=== PATIENT | male | born 1945 | race Caucasian/White ===

== ENCOUNTER 2016-09-17 05:17 | Inpatient (IN) | payer MEDICARE ==
[~2016-09-17] VITALS: Ht 177.8 cm; Wt 118.4 kg
--- NOTE | ~2016-09-17 | HEMODYNAMI ---
PATIENT:JACKELIN MOORE MEDICAL RECORD: [id number] : 43 LOCATION:[address] ADMISSION DATE: 09/17/16 Generatedon:09/20/20168:43 Patient name: JACKELIN MOORE Patient #: [id number] SSN: : 1945 Date of study: 09/20/2016 Page: Of Hemodynamic Procedure Report Patient Data Patient Demographics Procedure consent was obtained First Name: JACKELIN Gender: Male Last Name: TERESA : 1945 [facility] Initial: R Age: 71 year(s) Patient #: [id number] Race: Unknown Additional ID: [id number] Contact details Address: [address] [place] [address] State: [place] City: [facility] Zip code: [address] Past Medical History Allergies: No known allergies Admission Admission Data Admission Date: 09/17/2016 Admission Time: 6:42 Room #: D.2122 Weight (lbs.): 260 Weight (kg.): 117.93 Lab Results Lab Result Date: 09/19/2016 Lab Result Time: 0:00 Biochemistry Name Units Result Min Max BUN mg/dl 20 --(----)*- 7 18 Creatinine mg/dl 1.4 --(----)*- 0.6 1.3 CBC Name Units Result Min Max Hemoglobin g/dl 12.7 -*(----)-- 13.5 17.5 Procedure Procedure Types Cath Procedure PCI Procedure Coronary Stent Initial Procedure Description Procedure Date Procedure Date: 09/20/2016 Procedure Start Time: 8:11 Procedure End Time: 8:38 Procedure Staff Name Function Carl Robledo MD Performing Physician Philly Nuñez RN Nurse Inder Da Silva RT Monitor Maldonado Yu RT Scrub Kathi Nixon RT Monitor Procedure Data Cath Procedure Fluoroscopy Diagnostic fluoroscopy Total fluoroscopy Time: 10 time: 10 min min Contrast Material Contrast Material Type Amount (ml) Isovue 300 152 Entry Location Entry Primary Successful Side Size Upsize Upsize Entry Closure Succes sful Closure Location (Fr) 1 (Fr) 2 (Fr) Remarks Device Remarks Femoral Right 6 Fr 7 Fr Exoseal artery Short Short Estimated blood loss: 10 ml Procedure Complications No complications Procedure Medications Medication Administration Route Dosage Oxygen NC 2 l/min Lidocaine 2% added to field 20 Heparin Flush Bag added to field 2 bags (1000units/500ml NS) 0.9% NaCl I.V. 100 ml/hr Versed I.V. 1 mg Fentanyl I.V. 50 mcg Versed I.V. 0.5 mg Fentanyl I.V. 25 mcg Heparin Bolus I.V. 4000 units Versed I.V. 0.5 mg Fentanyl I.V. 25 mcg Fentanyl I.V. 50 mcg Hemodynamics Rest HGB: 12.7 (g/dl) Heart Rate: 70 (bpm) Snapshots Pre Cath Intra NCS Post Cath Vital Signs Time Heart Resp SPO2 etCO2 [id number] NIBP (mmHg) Rhythm Pain Sedation Rate (ipm) (%) (mmHg) (mmHg) Status Level (bpm) 7:52:31 97 18 93 0 0 156/81(114) NSR 0 (11) 10(A) , No pain 7:57:02 83 37 98 0 0 162/73(129) NSR 0 (11) 10(A) , No pain 8:01:17 80 20 96 0 0 135/69(100) NSR 0 (11) 10(A) , No pain 8:05:38 80 20 95 0 0 136/68(94) NSR 0 (11) 10(A) , No pain 8:09:54 82 20 94 0 0 118/66(84) NSR 0 (11) 10(A) , No pain 8:14:10 82 18 94 0 0 127/66(100) NSR 0 (11) 9(A) , No pain 8:20:31 82 16 94 0 0 142/74(0) NSR 0 (11) 9(A) , No pain 8:25:30 84 19 92 0 0 134/64(0) NSR 0 (11) 9(A) , No pain 8:27:49 86 19 96 0 0 129/51(0) NSR 0 (11) 9(A) , No pain 8:31:40 83 21 96 0 0 154/68(0) NSR 0 (11) 9(A) , No pain 8:36:44 85 20 96 0 0 176/81(122) NSR 0 (11) 10(A) , No pain Medications Time Medication Route Dose Verified Delivered Reason Notes Effectiveness by by 7:54:13 Oxygen NC 2 Carl Buffie used for l/min Venkat Nuñez RN procedure 8:03:55 Lidocaine 2% added 20ml Carl Carl for local to vial Venkat Robledo MD anesthetic field 8:04:00 Heparin Flush added 2 Carl Calr used for Bag to bags Venkat Robledo MD procedure (1000units/500ml field NS) 8:07:44 0.9% NaCl I.V. 100 Carl Buffie Per physician ml/hr Venkat Nuñez RN 8:08:59 Versed I.V. 1 mg Carl Perezie for sedation Venkat Nuñez RN 8:09:05 Fentanyl I.V. 50 Carl Buffie for sedation mcg Venkat Nuñez RN 8:12:04 Versed I.V. 0.5 Carl Buffie for sedation mg Venkat Nuñez RN 8:12:08 Fentanyl I.V. 25 Carl Buffie for sedation mcg Venkat Nuñez RN 8:12:48 Heparin Bolus I.V. 4000 Carl Buffie for verifie d units Venkat Nuñez RN anticoagulation with dr robledo 8:24:09 Versed I.V. 0.5 Carl Buffie for sedation mg Venkat Nuñez RN 8:24:13 Fentanyl I.V. 25 Carl Buffie for sedation mcg Venkat Nuñez RN 8:28:41 Fentanyl I.V. 50 Carl Buffie for sedation mcg Venkat Nuñez RN Procedure Log Time Note 7:17:46 Patient Weight : 260 lbs 7:19:16 Diagnostic Cath status Elective 7:19:29 Time tracking: Regular hours 7:19:34 Plan of Care:Hemodynamics will remain stable., Cardiac rhythm will remain stable., Comfort level will be maintained., Respiratory function will remain adequate., Patient/ family verbilizes understanding of procedure., Procedure tolerated without complication., Recovers from procedure without complications.. 7:30:20 Maldonado ESPITIA(R) sent for patient. Start room use. 7:42:58 Patient received from PCU to CCL 2 Alert and oriented. Tansferred to table in Supine position. 7:50:59 Warm blankets applied, and daryn hugger turned on for patient comfort. 7:50:59 Correct patient and procedure confirmed by team. 7:51:00 Signed procedure consent form obtained from patient. 7:51:01 ECG and BP/O2 sat monitors applied to patient. 7:51:05 Vital chart was started 7:54:13 Oxygen 2 l/min NC was given by Philly Nuñez RN; used for procedure; 8:01:18 Use device set Femoral PCI 8:01:20 Acist Syringe opened to sterile field. 8:01:20 Acist Hand Control opened to sterile field. 8:01:21 Bag Decanter opened to sterile field. 8:01:22 Cardinal Cath Pack opened to sterile field. 8:01:23 Terumo 6Fr [place] Sheath opened to sterile field. 8:01:24 St Rene 260cm J .035 wire opened to sterile field. 8:01:25 Merit BasixCompak Inflation Kit opened to sterile field. 8:01:26 Acist Manifold opened to sterile field. 8:01:26 Tegaderm 4 x 4 opened to sterile field. 8:02:26 Colbert Whisper J 300cm 0.014 guide wire opened to sterile field. 8:02:32 Baseline sample Acquired. 8:02:36 Rhythm: sinus rhythm 8:03:31 Full Disclosure recording started 8:03:51 H&P Date Dictated: 09/17/2016 Within 30 days and on chart.. 8:03:53 Pre-procedure instructions explained to patient. 8:03:54 Pre-op teaching completed and patient verbalized understanding. 8:03:55 Lidocaine 2% 20ml vial added to field was given by Carl Robledo MD; for local anesthetic; 8:03:57 Family in patients room. 8:04:00 Heparin Flush Bag (1000units/500ml NS) 2 bags added to field was given by Carl Robledo MD; used for procedure; 8:04:00 Patient NPO since Midnight. 8:04:04 Is the patient allergic to Iodine/contrast media? No. 8:04:09 Is patient on blood thinner?Yes 8:04:17 ACC The patient was administered the following blood thiners within the last 24 hours: ACCAspirin, ACCPlavix 8:04:37 Patient diabetic? No. 8:05:12 ----Pre-sedation anethsthesia assessment.---- 8:05:15 Previous problem with sedation/anesthesia? No ? 8:05:21 Snore? Yes 8:05:23 Sleep apnea? Yes 8:05:26 Deviated septum? No 8:05:27 Opens mouth fully? Yes 8:05:29 Sticks out tongue? Yes 8:05:37 Airway obstruction? No ? 8:05:40 Dentures? No ? 8:05:50 Pre procedure: left dorsailis pedis pulse 1+ Palpable, but thready & weak; easily obliterated 8:05:54 Zero performed for pressure channel P1 8:06:10 Patient pain scale 0/10 ?. 8:06:30 IV patent on arrival in left forearm with 0.9% NaCl at [facility]. 8:06:36 Left groin area was prepped with chlora-prep and draped in sterile fashion 8:06:38 Alarms reviewed by R. N. 8:06:38 Sharps counted by scrub and verified by R.N. 8:06:40 Physician arrived 8:06:41 --------ALL STOP TIME OUT------ 8:06:41 Final Timeout: patient, procedure, and site verified with staff and physician. All members of the team are in agreement. 8:06:44 Left groin site verified by team. 8:06:48 Physical assessment completed. ASA score P 3 - A patient with severe systemic disease as per Carl Robledo MD. 8:06:54 Sedation plan: IV Moderate Sedation Versed, Fentanyl 8:07:44 0.9% NaCl 100 ml/hr I.V. was given by Philly Nuñez RN; Per physician; 8:08:16 Use device set Femoral PCI 8:08:59 Versed 1 mg I.V. was given by Philly Nuñez RN; for sedation; 8:09:05 Fentanyl 50 mcg I.V. was given by Philly Nuñez RN; for sedation; 8:09:08 Acist Syringe opened to sterile field. 8:09:08 Acist Hand Control opened to sterile field. 8:09:09 Bag Decanter opened to sterile field. 8:09:10 Cardinal Cath Pack opened to sterile field. 8:09:11 Terumo 6Fr [place] Sheath opened to sterile field. 8:09:12 St Rene 260cm J .035 wire opened to sterile field. 8:09:14 Merit BasixCompak Inflation Kit opened to sterile field. 8:09:15 Acist Manifold opened to sterile field. 8:09:19 Tegaderm 4 x 4 opened to sterile field. 8:10:59 Procedure started. 8:11:05 Local anesthetic to left femerol artery with Lidocaine 2% by Carl Robledo MD.INITIAL ACCESS ONLY 8:11:57 A 6 Fr Short sheath was inserted into the Right Femoral artery 8:12:04 Versed 0.5 mg I.V. was given by Philly Nuñez RN; for sedation; 8:12:08 Fentanyl 25 mcg I.V. was given by Philly Nuñez RN; for sedation; 8:12:12 Cordis 6FR XBLAD 4.0 guide catheter opened to sterile field. 8:12:29 6 Fr XBLAD 4 guide catheter was inserted over the wire 8:12:39 Whisper wire advanced. 8:12:42 Wire advanced across lesion. 8:12:48 Heparin Bolus 4000 units I.V. was given by Philly Nuñez RN; for anticoagulation; verified with dr robledo 8:13:38 Colbert Whisper J 300cm 0.014 guide wire opened to sterile field. 8:16:46 Wire removed. 8:16:47 Guide catheter removed. 8:17:01 unable to cross lesion 8:18:18 Sheath upsized to a 7 Fr Short. 8:19:14 [place] Sci Choice PT Extra Support J 300cm .014 gu opened to sterile field. 8:19:16 Medtronic Launcher 7Fr EBU 3.5 SH guide catheter opened to sterile field. 8:19:30 7 Fr EBU 3.5 guide catheter was inserted over the wire 8:19:37 ex support wire advanced. 8:22:40 wire exchanged for whisper, unable to access cx with ex support wire 8:24:09 Versed 0.5 mg I.V. was given by Philly Nuñez RN; for sedation; 8:24:13 Fentanyl 25 mcg I.V. was given by Philly Nuñez RN; for sedation; 8:25:42 Wire advanced across lesion. 8:25:46 Balloon re-inserted over wire. 8:26:34 Inflation number: 1 A [place] Sci [place] 3.0 X 20 balloon was prepped and advanced across the Prox CX, then inflated to 11 CLARK for 0:10 (min:sec). 8:27:12 Inflation number: 1 The [place] Sci [place] 3.0 X 20 balloon was reinflated across the 1st Ob Gail, to 11 CLARK for 0:10 (min:sec). 8:27:31 Balloon removed over the wire. 8:28:41 Fentanyl 50 mcg I.V. was given by Philly Nuñez RN; for sedation; 8:30:03 Inflation Number: 2 A Medtronic Resolute 2.75 X 14 stent was prepped and advanced across the 1st Ob Gail. The stent was deployed at 13 CLARK for 0:10 (min:sec). 8:30:56 Stent catheter was removed intact over wire. 8:31:25 Terumo 7Fr [place] Sheath opened to sterile field. 8:33:25 Inflation Number: 2 A Medtronic Resolute 2.5 X 14 stent was prepped and advanced across the Prox CX. The stent was deployed at 0 CLARK for 0:00 (min:sec). 8:33:59 2.5 STENT UNABLE to CROSS 8:35:43 Cordis 7Fr Exoseal opened to sterile field. 8:35:50 Wire removed. 8:35:51 Guide catheter removed. 8:36:08 Stent removed. unable to cross lesion. 8:36:27 Sheath removed intact; hemostasis achieved with Exoseal to the Right Femoral artery. 8:36:30 Procedure ended.(Physican Out) 8:36:53 Fluoroscopy time 10.00 minutes. 8:37:09 Contrast amount:Isovue 300 152ml. 8:37:11 Sharps counted by scrub and verified by R.N. 8:37:14 Insertion/operative site no bleeding no hematoma. 8:37:18 Post-op/insertion site Left Femoral artery dressed using a 4 x 4 and Tegaderm. 8:37:24 Post left femerol artery:stable 8:37:33 Post-procedure physical assessment completed. ASA score P 3 - A patient with severe systemic disease as per Carl Robledo MD. 8:37:39 Post procedure rhythm: unchanged. 8:37:43 Estimated blood loss: 10 ml 8:37:45 Post procedure instruction explained to patient.Patient verbalizes understanding. 8:37:51 Procedure and supply charges have been captured, reviewed, submitted and are correct. 8:38:43 Procedure Complication : No complications 8:38:46 Vital chart was stopped 8:38:48 See physician's report for complete and final results. 8:38:51 Report given to [facility]. 8:38:55 Patient transfered to [facility] with Bed. 8:38:58 Procedure ended. 8:38:58 Full Disclosure recording stopped 8:39:08 ACC-PCI Only Patient was given prescriptions, or instructed by Carl Robledo MD to start/continue the following medications upon discharge: Plavix 8:39:10 End room use (Document Last) Intervention Summary Intervention Notes Time ActionType Lesion and Equipment Action# Pressure Duration Attributes Used 8:26:34 Inflate Prox CX [place] 1 11 00:10 balloon Sci [place] 3.0 X 20 balloon 8:27:12 Reinflate 1st Ob Gail [place] 1 11 00:10 balloon Sci [place] 3.0 X 20 balloon 8:30:03 Place stent 1st Ob Gail Medtronic 2 13 00:10 Resolute 2.75 X 14 stent 8:33:25 Place stent Prox CX Medtronic 2 0 00:00 Resolute 2.5 X 14 stent Device Usage Item Name Manufacture Quantity Catalog Number Hospital Part Current Mini mal Lot# / Charge Number Stock Stock Serial# Code Acist Acist 2 73223 [id number] [id number] 20 Syringe Medical Systems Inc Acist Hand Acist 2 97946 139056 227362 963843 5 Control Medical Systems Inc Bag Microtek 2 2002S [id number] 45076 052542 5 Decanter Medical Inc. Cardinal Cardinal 2 [id number] 391437 02925 212188 5 Cath Pack Health Terumo 6Fr Terumo 2 [id number] 130443 242229 573914 [address] St Rene 2 [id number] 125041 563649 251633 30 260cm J .035 wire Merit Merit 2 [id number] 057340 136500 861735 15 BasixYext Medical Inflation Kit Acist Acist 2 26011 100267 367141 563485 5 Pipedrive Medical Systems Inc Tegaderm 4 3M 2 1626W 608229 815562 177185 5 x 4 Colbert Colbert 2 [id number] 470956 597161 631473 5 Whisper J Vascular 300cm 0.014 guide wire Cordis 6FR Cardinal 1 [id number] 459547 380032 853188 3 XBLAD 4.0 Health guide catheter [place] Sci [place] 1 [id number] 592331 671892 836891 5 Choice PT Scientific Extra Support J 300cm .014 gu Medtronic Medtronic 1 [id number] 743092 078465 959396 0 Launcher 7Fr EBU 3.5 SH guide catheter [place] Sci [place] 1 [id number] 197651 048159 889464 1 [id number] [place] Scientific 3.0 X 20 balloon Medtronic Medtronic 1 [id number] 930735 301646 7 [id number] Resolute 2.75 X 14 stent Terumo 7Fr Terumo 1 [id number] 008722 692726 318620 5 [place] Sheath Medtronic Medtronic 1 [id number] 575755 338954 3 [id number] Resolute 2.5 X 14 stent Cordis 7Fr Cardinal 1 [id number] 960098 758356 355403 5 [facility] Health Signature Audit [place] Stage Time Signature Unsigned Intra-Procedure 09/20/2016 Kathi Nixon 8:43:48 AM RT(R) Signatures Monitor : Inder Da Silva RT Signature : Date : Time : Monitor : Kathi Nixon Signature : RT Date : Time : [facility] [address] [facility] [place] [address]
--- NOTE | ~2016-09-17 | HEMODYNAMI ---
PATIENT:JACKELIN MOORE MEDICAL RECORD: [id number] : 43 [address] [id number] ADMISSION DATE: 09/17/16 Generatedon:09/19/201617:29 Patient name: JACKELIN MOORE Patient #: [id number] SSN: : 1945 Date of study: 09/19/2016 Page: Of Hemodynamic Procedure Report Patient Data Patient Demographics Procedure consent was obtained First Name: JACKELIN Gender: Male Last Name: TERESA : 1945 [facility] Initial: R Age: 71 year(s) Patient #: [id number] Race: Unknown Additional ID: [id number] Contact details Address: [address] [place] [address] State: [place] City: [facility] Zip code: [address] Past Medical History Allergies: No known allergies Admission Admission Data Admission Date: 09/17/2016 Admission Time: 6:42 Admit Source: Other Room #: D.2122 Weight (lbs.): 260 Weight (kg.): 117.93 Lab Results Lab Result Date: 09/19/2016 Lab Result Time: 0:00 Biochemistry Name Units Result Min Max BUN mg/dl 20 --(----)*- 7 18 Creatinine mg/dl 1.4 --(----)*- 0.6 1.3 CBC Name Units Result Min Max Hemoglobin g/dl 12.7 -*(----)-- 13.5 17.5 Procedure Procedure Types Cath Procedure Diagnostic Procedure C [facility] w/Coronaries PCI Procedure Coronary Stent Initial Procedure Description Procedure Date Procedure Date: 09/19/2016 Procedure Start Time: 16:48 Procedure End Time: 17:18 Procedure Staff Name Function Carl Robledo MD Performing Physician Patricia Colon RT Scrub Sofya Cedeno RN Nurse Rajat Marin RN [place] Kathi Nixon RT Monitor Procedure Data Cath Procedure Fluoroscopy Diagnostic fluoroscopy Total fluoroscopy Time: 6.7 time: 6.7 min min Contrast Material Contrast Material Type Amount (ml) Isovue 300 139 Entry Location Entry Primary Successful Side Size Upsize Upsize Entry Closure Mcclure ccessful Closure Location (Fr) 1 (Fr) 2 (Fr) Remarks Device Remarks Radial Right 6 Fr Mechanical TR L artery Short Compression Femoral Right 7 Fr Exoseal artery Short Estimated blood loss: 10 ml Diagnostic catheters Device Type Used For End Catheter Placement Terumo 5Fr Petros 110cm Procedure catheter Procedure Complications No complications Procedure Medications Medication Administration Route Dosage Oxygen NC 2 l/min Heparin Flush Bag added to field 2 bags (1000units/500ml NS) Lidocaine 2% added to field 20 Radial Cocktail added to field 1 syringe (Verapomil 2mg/Nitro 400mcg/Heparin 1500units) Versed I.V. 1 mg Fentanyl I.V. 50 mcg Radial Cocktail I.A. 1 syringe (Verapomil 2mg/Nitro 400mcg/Heparin 1500units) Versed I.V. 1 mg Fentanyl I.V. 50 mcg Fentanyl I.V. 50 mcg Heparin Bolus I.V. 4000 units Integrilin (Bolus I.V. 10.7 ml 2mg/ml) Fentanyl I.V. 50 mcg Plavix P.O. 600 mg Fentanyl I.V. 50 mcg Fentanyl I.V. 50 mcg Hemodynamics Rest Pre Cath Intra NCS Post Cath Vital Signs Time Heart Resp SPO2 NIBP (mmHg) Rhythm Pain Status Sedation Rate (ipm) (%) Level (bpm) 16:41:38 82 22 99 189/92(139) NSR 0 (11) , No 10(A) pain 16:46:10 84 24 99 183/88(143) NSR 0 (11) , No 10(A) pain 16:50:28 82 23 99 164/86(128) NSR 0 (11) , No 10(A) pain 16:54:50 80 19 98 147/73(109) NSR 0 (11) , No 10(A) pain 16:59:10 81 22 98 155/76(110) NSR 0 (11) , No 10(A) pain 17:03:34 83 25 98 153/80(124) NSR 4 (11) , 10(A) Distressing 17:07:59 83 20 98 165/81(134) NSR 4 (11) , 10(A) Distressing 17:12:27 83 24 98 172/81(129) NSR 8 (11) , 10(A) Utterly horrible 17:16:57 82 19 99 176/84(135) NSR 8 (11) , 10(A) Utterly horrible 17:20:55 79 22 100 181/85(132) NSR 4 (11) , 10(A) Distressing Medications Time Medication Route Dose Verified Delivered Reason Note s Effectiveness by by 16:42:06 Oxygen NC 2 l/min Carl Sofya Per physician Venkat Cedeno RN 16:42:12 Heparin Flush added 2 bags Carl Carl used for Bag to Venkat Robledo MD procedure (1000units/500ml field NS) 16:42:18 Lidocaine 2% added 20ml Carl Carl used for to vial Venkat Robledo MD procedure field 16:42:26 Radial Cocktail added 1 Carl Carl used for (Verapomil to syringe Venkat Robledo MD procedure 2mg/Nitro field 400mcg/Heparin 1500units) 16:45:03 Versed I.V. 1 mg Carl Sofya for sedation Venkat Cedeno RN 16:45:08 Fentanyl I.V. 50 mcg Carl Sofya for sedation Venkat Cedeno RN 16:47:00 Versed I.V. 1 mg Carl Carl for sedation Venkat Robledo MD 16:47:06 Fentanyl I.V. 50 mcg Carl Carl for sedation Venkat Robledo MD 16:48:57 Radial Cocktail I.A. 1 Carl Carl for (Verapomil syringe Venkat Robledo MD vasodilation 2mg/Nitro 400mcg/Heparin 1500units) 16:50:18 Fentanyl I.V. 50 mcg Carl Carl for sedation Venkat Robledo MD 16:57:04 Heparin Bolus I.V. 4000 Carl Sofya for dose units Venkat Cedeno RN anticoagulation verified wt dr robledo 17:00:08 Fentanyl I.V. 50 mcg Carl Sofya for sedation Venkat Cedeno RN 17:00:26 Integrilin I.V. 10.7 ml Carl Sofya for (Bolus 2mg/ml) Venkat Cedeno RN antiplatelet therapy 17:06:55 Fentanyl I.V. 50 mcg Carl Sofya for sedation Venkat Cedeno RN 17:11:16 Plavix P.O. 600 mg Carl Sofya for Venkat Cedeno RN antiplatelet therapy 17:16:10 Fentanyl I.V. 50 mcg Carl Cowart Per physician give n Venkat Cedeno RN for pt jaw pain. dr robledo informed of pt jaw pain Procedure Log Time Note 16:24:50 Admit Source: Other 16:25:20 Diagnostic Cath status Elective 16:25:23 Rajat Marin RN sent for patient. Start room use. 16:25:25 Time tracking: Regular hours 16:25:31 Plan of Care:Hemodynamics will remain stable., Cardiac rhythm will remain stable., Comfort level will be maintained., Respiratory function will remain adequate., Patient/ family verbilizes understanding of procedure., Procedure tolerated without complication., Recovers from procedure without complications.. 16:25:45 Patient received from Med II to CCL 1 Alert and oriented. Tansferred to table in Supine position. 16:25:47 Warm blankets applied, and daryn hugger turned on for patient comfort. 16:25:48 Correct patient and procedure confirmed by team. 16:25:50 Signed procedure consent form obtained from patient. 16:25:58 H&P Date Dictated: 09/19/2016 Within 30 days and on chart.. 16:26:03 Family in waiting room. 16:26:05 Patient NPO since Midnight. 16:26:15 Patient allergic to No known allergies 16:26:27 Is the patient allergic to Iodine/contrast media? No. 16:26:35 Is patient on blood thinner?Yes 16:26:46 ACC The patient was administered the following blood thiners within the last 24 hours: ACCPlavix, ACCLovenox 16:26:53 Patient diabetic? No. 16:26:57 Snore? Yes 16:26:58 Sleep apnea? Yes 16:27:00 Deviated septum? No 16:27:01 Opens mouth fully? Yes 16:27:02 Sticks out tongue? Yes 16:27:11 Airway obstruction? Yes COPD, Asthma 16:27:15 Dentures? Yes ? 16:27:21 Patient pain scale 0/10 ?. 16:27:28 IV patent on arrival in right hand with 0.9% NaCl at O. 16:28:13 Lab Result : Creatinine 1.4 mg/dl 16:: Lab Result : BUN 20 mg/dl :: Lab Result : Hemoglobin 12.7 g/dl 16:28:18 Lab results completed and on chart. 16:40:20 Vital chart was started 16:42:06 Oxygen 2 l/min NC was given by Sofya Cedeno RN; Per physician; 16:42:12 Heparin Flush Bag (1000units/500ml NS) 2 bags added to field was given by Carl Robledo MD; used for procedure; 16:42:18 Lidocaine 2% 20ml vial added to field was given by Carl Robledo MD; used for procedure; 16:42:26 Radial Cocktail (Verapomil 2mg/Nitro 400mcg/Heparin 1500units) 1 syringe added to field was given by Carl Robledo MD; used for procedure; 16:42:52 Right Radial & Right Groin area was prepped with chlora-prep and draped in sterile fashion 16:42:53 Alarms reviewed by R. N. 16:42:54 Sharps counted by scrub and verified by R.N. 16:42:55 Physician paged 16:42:55 Physician arrived 16:42:56 --------ALL STOP TIME OUT------ 16:42:57 Final Timeout: patient, procedure, and site verified with staff and physician. All members of the team are in agreement. 16:43:00 Right Radial & Right Groin site verified by team. 16:43:05 Physical assessment completed. ASA score P 2 - A patient with mild systemic disease as per Carl Robledo MD. 16:43:09 Sedation plan: IV Moderate Sedation Versed, Fentanyl 16:43:52 Use device set Radial Dx 16:43:53 Acist Syringe opened to sterile field. 16:43:53 Cardinal Cath Pack opened to sterile field. 16:43:54 Bag Decanter opened to sterile field. 16:43:54 Terumo 6Fr Slender Glidesheath opened to sterile field. 16:43:55 St Rene 260cm J .035 wire opened to sterile field. 16:43:55 Acist Hand Control opened to sterile field. 16:43:56 Acist Manifold opened to sterile field. 16:43:56 IV Extension Set opened to sterile field. 16:43:57 Tegaderm 4 x 4 opened to sterile field. 16:45:03 Versed 1 mg I.V. was given by Sofya Cedeno RN; for sedation; 16:45:08 Fentanyl 50 mcg I.V. was given by Sofya Cedeno RN; for sedation; 16:47:00 Versed 1 mg I.V. was given by Carl Robledo MD; for sedation; 16:47:06 Fentanyl 50 mcg I.V. was given by Carl Robledo MD; for sedation; 16:47:55 Zero performed for pressure channel P1 16:47:57 Patient Weight : 117.93 lbs 16:48:42 Procedure started. 16:48:42 Full Disclosure recording started 16:48:48 Local anesthetic to right radial artery with Lidocaine 2% by Carl Robledo MD.INITIAL ACCESS ONLY 16:48:57 Radial Cocktail (Verapomil 2mg/Nitro 400mcg/Heparin 1500units) 1 syringe I.A. was given by Carl Robledo MD; for vasodilation; 16:48:57 A 6 Fr Short sheath was inserted into the Right Radial artery 16:50:18 Fentanyl 50 mcg I.V. was given by Carl Robledo MD; for sedation; 16:50:25 A Terumo 5Fr Petros 110cm catheter was advanced over the wire and used for Procedure. 16:50:34 LV hemodynamics recorded. 16:50:44 LV gram done using DEWEY 16:51:17 EF : 50 % 16:51:26 LCA angiography performed. 16:53:30 RCA angiography performed. 16:57:04 Heparin Bolus 4000 units I.V. was given by Sofya Cedeno RN; for anticoagulation; dose verified wt dr robledo 16:59:31 Terumo 7Fr [place] Sheath opened to sterile field. 16:59:38 Colbert Whisper J 300cm 0.014 guide wire opened to sterile field. 17:00:08 Fentanyl 50 mcg I.V. was given by Sofya Cedeno RN; for sedation; 17:00:26 Integrilin (Bolus 2mg/ml) 10.7 ml I.V. was given by Sofya Cedeno RN; for antiplatelet therapy; 17:00:48 Merit BasixCompak Inflation Kit opened to sterile field. 17:00:49 Medtronic Launcher 7Fr AR 2.0 SH guide catheter opened to sterile field. 17:01:15 Local anesthetic to right femoral artery with Lidocaine 2% by Carl Robledo MD.ADDITIONAL ACCESS 17:01:29 A 7 Fr Short sheath was inserted into the Right Femoral artery 17:01:50 7 Fr AR@ SH guide catheter was inserted over the wire 17:02:26 Whisper wire advanced. 17:03:48 Inflation Number: 1 A Medtronic Resolute 3.0 X 9 stent was prepped and advanced across the Dist RCA. The stent was deployed at 21 CLARK for 0:10 (min:sec). 17:06:55 Fentanyl 50 mcg I.V. was given by Sofya Cedeno RN; for sedation; 17:07:16 Inflation number: 2 A Euphora 3.0 x 15 Balloon was prepped and advanced across the Dist RCA, then inflated to 13 CLARK for 0:10 (min:sec). 17:07:26 Balloon removed over the wire. 17:09:22 Wire removed. 17:10:28 Terumo TR Band Large opened to sterile field. 17:10:31 Cordis 7Fr Exoseal opened to sterile field. 17:11:16 Plavix 600 mg P.O. was given by Sofya Cedeno RN; for antiplatelet therapy; 17:11:23 Inflation Number: 1 A Medtronic Resolute 2.5 X 8 stent was prepped and advanced across the Mid RCA. The stent was deployed at 13 CLARK for 0:10 (min:sec). 17:15:24 Sheath removed intact; hemostasis achieved with Mechanical Compression to the Right Radial artery. 17:15:34 Sheath removed intact; hemostasis achieved with Exoseal to the Right Femoral artery. 17:15:38 Procedure ended.(Physican Out) 17:16:01 Fluoroscopy time 06.70 minutes. 17:16:10 Fentanyl 50 mcg I.V. was given by Sofya Cedeno RN; Per physician; given for pt jaw pain. dr robledo informed of pt jaw pain 17:16:23 Contrast amount:Isovue 300 139ml. 17:16:29 TR band inflated with 10cc of air. 17:16:32 Insertion/operative site no bleeding no hematoma. 17:16:35 Post-op/insertion site Right Femoral artery dressed using a 4 x 4 and Tegaderm. 17:16:39 Post right femoral artery:stable 17:16:42 Post Procedure Pulses reassessed and unchanged 17:16:47 Post-procedure physical assessment completed. ASA score P 3 - A patient with severe systemic disease as per Carl Robledo MD. 17:16:50 Post procedure rhythm: unchanged. 17:16:54 Estimated blood loss: 10 ml 17:16:56 Post procedure instruction explained to patient.Patient verbalizes understanding. 17:17:11 Procedure type changed to Cath procedure, Diagnostic procedure, LHC, LHC w/Coronaries, PCI procedure, Coronary Stent Initial 17:17:13 Procedure and supply charges have been captured, reviewed, submitted and are correct. 17:18:19 Procedure Complication : No complications 17:18:22 Vital chart was stopped 17:18:23 See physician's report for complete and final results. 17:18:30 Report given to [facility] II. 17:18:36 Patient transfered to [facility] with Bed. 17:18:38 Procedure ended. 17:18:38 Full Disclosure recording stopped 17:18:47 End room use (Document Last) 17:28:24 St Rene Femstop Arch Gold opened to sterile field. 17:28:39 Femstop placed over the right femoral artery at 1530 mmHg. Hemostasis achieved. Intervention Summary Intervention Notes Time ActionType Lesion and Equipment Action# Pressure Duration Attributes Used 17:03:48 Place stent Dist RCA Medtronic 1 21 00:10 Resolute 3.0 X 9 stent 17:07:16 Inflate Dist RCA Euphora 2 13 00:10 balloon 3.0 x 15 Balloon 17:11:23 Place stent Mid RCA Medtronic 1 13 00:10 Resolute 2.5 X 8 stent Device Usage Item Name Manufacture Quantity Catalog Hospital Part Current Minimal Lot# / Number Charge Number Stock Stock Serial# Code Acist Acist 1 15577 277228 000869 102337 20 Syringe Medical Systems Inc Cardinal Cardinal 1 [id number] 011822 54951 399429 5 Cath Pack Health Bag Microtek 1 2001S 973974 68106 830597 5 Flotype Inc. Terumo 6Fr Terumo 1 [id number] 135138 482030 167891 [address] Rene St Rene 1 522462 191255 659290 552947 30 260cm J .035 wire Acist Hand Acist 1 91150 843791 976051 476013 5 Control Medical Systems Inc Acist Acist 1 21489 602634 707179 585368 5 Manifold Medical Systems Inc IV Hospira 1 33743-89 298155 90675 146971 5 Extension Set Tegaderm 4 3M 1 1626W 833338 305282 450234 5 x 4 Terumo 5Fr Terumo 2 405023 416533 305514 915974 5 Petros 110cm catheter Terumo 7Fr Terumo 1 [id number] 040619 842769 056849 5 [place] Sheath Colbert Colbert 1 [id number] 821731 073946 964327 5 Whisper J Vascular 300cm 0.014 guide wire [facility] Merit 1 [id number] 089068 750430 247610 15 BasixComwaGeoPoll Medical Inflation Kit Medtronic Medtronic 1 [id number] 760489 531829 509636 0 Launcher 7Fr AR 2.0 SH guide catheter Medtronic Medtronic 1 [id number] 612073 777741 7 [id number] Resolute 3.0 X 9 stent Euphora 3.0 Medtronic 1 [id number] 513264 824898 796797 5 [id number] x 15 Balloon Terumo TR Terumo 1 [id number] 021332 052010 40 Band Large Cordis 7Fr Cardinal 1 EX700 527281 492135 109299 5 [facility] Medtronic Medtronic 1 [id number] 691485 169797 0 [id number] Resolute 2.[address] Rene 1 [id number] 391910 174525 030242 5 Femstop Arch Gold Signature Audit [place] Stage Time Signature Unsigned Intra-Procedure 09/19/2016 Kathi Nixon 5:29:46 PM RT(R) Signatures Monitor : Kathi Nixon Signature : RT Date : Time : [facility] [address] [facility] [address]
[2016-09-17 05:46] LABS: BASOPHILS 0.9 % (0.0-2.0); EOSINOPHILS 2.7 % (0-7); HEMATOCRIT 45.9 % (42.0-54.0); HEMOGLOBIN 15.2 g/dL (13.5-17.5); IMMATURE GRANULOCYTES 0.1 % (0-5); LYMPHOCYTES 36.7 % (15-50); MCH 33.5 pg (26.0-34.0); MCHC 33.1 g/dL (31.0-37.0); MCV 101.1 fL (80.0-100.0); MEAN PLATELET VOLUME 10.2 fL (7.4-10.4); MONOCYTES 11.2 % (2-11); NEUTROPHILS 48.4 % (40-80); PLATELET COUNT 212 10x3/uL (130-400); RBC 4.54 10x6/uL (4.20-6.10); RDW 13.4 % (11.5-14.5); WBC 6.7 10x3/uL (4.8-10.8)
[2016-09-17 06:13] LABS: ALBUMIN 4.2 g/dL (3.4-5.0); ALKALINE PHOSPHATASE 113 U/L (46-116); ALT (SGPT) 29 U/L (10-68); AMYLASE - SERUM 64 U/L (25-115); BILIRUBIN - TOTAL 0.46 mg/dL (0.2-1.3); CALCIUM 10.1 mg/dL (8.5-10.1); CARBON DIOXIDE 22.6 mmol/L (21.0-32.0); CHLORIDE - SERUM 105 mmol/L (98-107); CREATINE KINASE 121 UL (21-232); GLUCOSE 116 mg/dL (74-106); LIPASE 268 U/L (73-393); POTASSIUM - SERUM 3.7 mmol/L (3.5-5.1); PRO BNP 85 pg/mL (0-125); PROTEIN - SERUM 7.8 g/dL (6.4-8.2); SODIUM 142 mmol/L (136-145)
[2016-09-17 06:27] LABS: CALC OSMOLALITY 284 mosm/kg (275-300); CREATININE - SERUM 1.4 mg/dL (0.6-1.3); UREA NITROGEN 15 mg/dL (7-18); eGFR NON AFRICAN AMERICAN 53 mL/min (90-120)
[2016-09-17 06:28] LABS: TROPONIN-I < 0.017 ng/mL (0.000-0.060)
[2016-09-17 08:02] VITALS: BP 159/73
[2016-09-17] MEDS ORDERED: BAYER CHEWABLE81 MG PO (08:55)
[2016-09-17] MEDS ORDERED: ZESTRIL40 MG PO (08:55)
[2016-09-17] MEDS ORDERED: SINGULAIR10 MG PO (08:56)
[2016-09-17] MEDS ORDERED: BENZONATATE200 MG PO (08:56)
[2016-09-17] MEDS ORDERED: MUCINEX600 MG PO (08:56)
[2016-09-17] MEDS ORDERED: NORVASC2.5 MG PO (08:57)
[2016-09-17] MEDS ORDERED: TEMAZEPAM30 MG PO (08:57)
[2016-09-17] MEDS ORDERED: BREO ELLIPTA 11 EACH INH (08:57)
[2016-09-17] MEDS ORDERED: COMBIVENT RESPIM4 GM INH (08:58)
[2016-09-17] MEDS ORDERED: HYDROCODONE-APA1 TAB PO (08:59)
[2016-09-17] MEDS ORDERED: ATIVAN1 MG PO (08:59)
[2016-09-17] MEDS ORDERED: LIPITOR20 MG PO (08:59)
[2016-09-17 09:00] VITALS: BMI 35.9
--- NOTE | 2016-09-17 09:11 | NUR ---
PT APPARENTLY ARRIVED TO FLOOR AROUND 7 AM. I WAS NOT MADE AWARE. PT WAS JUST ADMITTED. PT ALERT AND ORIENTED CO CHEST PAIN AND SOB. DR ACOSTA HERE AND SEEING PT NOW. WILL CONTINUE TO MONITOR.
--- NOTE | 2016-09-17 10:08 | NUR ---
EKG DONE PLACED ON CHART
[2016-09-17 11:18] VITALS: BP 179/83
--- NOTE | 2016-09-17 14:29 | NUR ---
PT SITTING UP IN BED RESTING. DENIES NEEDS. WILL CONTINUE TO MONITOR.
[2016-09-17 15:50] VITALS: BP 150/62
--- NOTE | 2016-09-17 16:10 | NUR ---
EKG DONE AND PLACED ON CHART
--- NOTE | 2016-09-17 17:07 | NUR ---
PT SITTING UP IN BED EATING DINNER AT BEDSIDE. DENIES NEEDS WILL CONTINUE TO MONITOR.
--- NOTE | 2016-09-17 19:47 | NUR ---
INITIAL ROUNDS COMPLETED AT 1905 H RS. PT DENIED ANY DISCOMFORT. PT REFUSING AM WT AND 2400 VS. ASSESSMENT COMPLETED AT 1910 HRS. IV TO R HAND SL. O2 2.5LNC. LUNGS DIMINISHED IN BASES BILAT. GUERRERO. [place]. ALERT AND ORIENTED TO PERSON. PLACE AND TIME. PM MEDS GIVEN. MORPHINE 4MG SIVP GIVEN FOR C/O CP 01/04. HOME CPAP IN USE AT THIS TIME. WILL CONTINUE TO MONITOR. CALL LIGHT WITHIN REACH.
[2016-09-17 20:28] VITALS: BP 116/62
--- NOTE | 2016-09-17 22:01 | NUR ---
PT RESTING WITH EYES CLOSED. RESP EVEN AND REGULAR. SR UP X2,CALL LIGHT WITHIN REACH.
--- NOTE | 2016-09-17 22:56 | NUR ---
ATIVAN 1MG PO GIVEN PER PT REQUEST. WILL CONTINUE TO MONITOR.
--- NOTE | 2016-09-18 00:39 | NUR ---
PT RESTING WITH EYES CLOSED. RESP EVEN AND REGULAR. SR UP X2, CALL LIGHT WITHIN REACH.
--- NOTE | 2016-09-18 02:32 | NUR ---
PT RESTING WITH EYES CLOSED. RESP EVEN AND REGULAR. SR UP X2, CALL LIGHT WITHIN REACH.
--- NOTE | 2016-09-18 04:26 | NUR ---
SR HR 60. PT RESTING WITH EYES CLOSED. RESP EVEN AND REGULAR. HOME CPAP IN USE. SR UP X2, CALL LIGHT WITHIN REACH.
[2016-09-18 05:07] LABS: BASOPHILS 0.3 % (0.0-2.0); EOSINOPHILS 1.4 % (0-7); HEMATOCRIT 41.4 % (42.0-54.0); HEMOGLOBIN 13.4 g/dL (13.5-17.5); IMMATURE GRANULOCYTES 0.2 % (0-5); LYMPHOCYTES 33.3 % (15-50); MCH 32.9 pg (26.0-34.0); MCHC 32.4 g/dL (31.0-37.0); MCV 101.7 fL (80.0-100.0); MEAN PLATELET VOLUME 10.2 fL (7.4-10.4); MONOCYTES 12.6 % (2-11); NEUTROPHILS 52.2 % (40-80); PLATELET COUNT 173 10x3/uL (130-400); RBC 4.07 10x6/uL (4.20-6.10); RDW 13.5 % (11.5-14.5); WBC 6.3 10x3/uL (4.8-10.8)
[2016-09-18 05:39] LABS: CALCIUM 8.4 mg/dL (8.5-10.1); CARBON DIOXIDE 24.6 mmol/L (21.0-32.0); CHLORIDE - SERUM 107 mmol/L (98-107); CREATINE KINASE 99 UL (21-232); CREATININE - SERUM 1.4 mg/dL (0.6-1.3); GLUCOSE 105 mg/dL (74-106); POTASSIUM - SERUM 3.9 mmol/L (3.5-5.1); SODIUM 139 mmol/L (136-145); eGFR NON AFRICAN AMERICAN 53 mL/min (90-120)
[2016-09-18 05:41] LABS: CALC OSMOLALITY 280 mosm/kg (275-300); TROPONIN-I < 0.017 ng/mL (0.000-0.060); UREA NITROGEN 20 mg/dL (7-18)
[2016-09-18 06:22] VITALS: BP 154/57
--- NOTE | 2016-09-18 06:32 | NUR ---
VSS THIS AM. PT STATED HE SLEPT WELL FOR APPROX 6HRS DURING SHIFT. NAD. NEEDS MET; WILL CONTINUE TO MONITOR.
[2016-09-18 07:55] VITALS: BP 139/65
--- NOTE | 2016-09-18 08:57 | NUR ---
INTRODUCED MYSELF TO PT PRIMARY RN FOR TODAYS SHIFT. PT IS ALERT AND ORIENTED RESTING QUIETLY IN BED. RR NONLABORED WITH NC@2L IN PLACE. TELEMETRY RUNNING SR. PT HAS A R.HAND PIV WITH DRSG CDI, PATENT FLUSHES EASILY AND SWAB CAPS IN USE. PT REQUESTED AND WAS PROVIDED WITH PRN MORPHINE FOR L.JAW ACHING PAINS. PT REQUESTING TO ASK PRIMARY DOCTOR ABOUT MILK OF MAGNESIA, WILL ASK WHEN HE ROUNDS. PT DENIES ANY FURTHER NEEDS AT THIS TIME. CL IN REACH, BED IN LOWEST, SIDE RAILS X2. WILL CTM.
[2016-09-18 12:00] VITALS: BP 126/46
--- NOTE | 2016-09-18 13:51 | HP ---
PATIENT: JACKELIN MOORE MEDICAL RECORD: [id number] ACCOUNT: [id number] LOCATION:[address] : 43 ADMISSION DATE: 09/17/16 HISTORY AND PHYSICAL EXAMINATION DATE OF ADMISSION: 09/17/2016 CHIEF COMPLAINT: Shortness of breath, chest pain. HISTORY OF PRESENT ILLNESS: The patient is a 71-year-old gentleman with a longstanding history of an arteriosclerotic heart disease, had stents placed times 7. 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 PAST MEDICAL HISTORY AND PAST SURGICAL HISTORY: As stated above, the patient had a history of having hyperlipidemia, hypertension, and insomnia. He has had a history of having stents placed times 7. The patient also had a history of having asthma as well as COPD. He has had a right hip replaced in 2013, left hip replaced in 2013 as well, cholecystectomy. SOCIAL HISTORY: The patient is a former smoker, stopped approximately 5 years ago. He is an RN. He is . FAMILY HISTORY: Unknown. MEDICATIONS: Albuterol q.8 hours p.r.n. shortness of breath, amlodipine 2.5 mg p.o. every day, aspirin 81 mg once a day, atorvastatin 20 mg once a day, Breo Ellipta 100 mcg/25 mcg 1 puff every day, Combivent Respimat 20 mcg/100 mcg 1 puff q.i.d., Lasix 40 mg once a day, hydrocodone 10/325 one every 6 hours p.r.n. severe pain, lisinopril 20 mg once a day, Singulair 10 mg once a day, ropinirole 0.5 mg 1 p.o. q.h.s., Spiriva HandiHaler 18 mcg once a day, temazepam 30 mg 1 p.o. every day. ALLERGIES: He has known drug allergies. REVIEW OF SYSTEMS: CONSTITUTIONAL: He denies any headaches, seizure or syncope. Denies change in visual or auditory acuity. PULMONARY: He has had increasing shortness of breath. CARDIOVASCULAR: He has had some intermittent chest pain, states that last night it lasted approximately an hour. He had some left jaw pain as well. GASTROINTESTINAL: No chronic nausea, vomiting, melena or hematochezia. GENITOURINARY: No urgency, frequency, or dysuria. PHYSICAL EXAMINATION: VITAL SIGNS: In the Emergency Room, the patient's pulse was 88, his temperature was 98, his blood pressure ____. HEENT: Head is normocephalic. No lesions. Ears: TMs clear. Eyes: Pupils equal, round and reactive to light. Extraocular muscles intact. Nasal cavity, oral cavity and oropharynx clear. NECK: Supple. There is no adenopathy. HEART: Had regular rhythm. No murmurs, gallops or rubs. LUNGS: He had decreased breath sounds in all arana. HISTORY AND PHYSICAL [id number] JACKELIN MOORE ABDOMEN: Soft, bowel sounds positive. EXTREMITIES: Lower extremities have no edema. IMAGING: He had an EKG showing sinus rhythm, rate is 86, nonspecific ST-T wave changes were seen. The patient also had a chest x-ray. Chest x-ray revealed emphysema without any acute cardiomegaly. LABORATORY DATA: He had a white count of 6.7, his hemoglobin 15.2, hematocrit is 45.9 and his platelets were 212. Sodium of 142, potassium 3.7, chloride is 105, CO2 is 22, anion gap is 18, creatinine 1.4, BUN is 15, and glucose 116. ASSESSMENT: Substernal chest pain, history of arteriosclerotic heart disease, status post stenting times 7, history of asthma, chronic obstructive pulmonary disease. PLAN: The patient is admitted. Cardiology consultation will be obtained. The patient does possibly need a cardiac catheterization. The patient also will be placed on Solu-Medrol as well as O2 supplementation. He will have cardiac enzymes cycled, as well as EKG. TRANSINT:[id number] Voice Confirmation ID: [id number] DOCUMENT ID: [id number] JACKELIN MAX MD at 1351 CC: [id number] DICTATION DATE: 09/17/16 1148 ELECTROENCEPHALOGRAPH TECHNOLOGIST: 09/17/16 1408 ADM IN [place] [id number] [place] [address]
--- NOTE | 2016-09-18 14:30 | NUR ---
CONSENTS SIGNED FOR CATH TOMORROW AND PLACED IN CHART. PT RESTING QUIETLY IN ROOM AND DENIES ANY CURRENT PAIN OR NEEDS. CL IN REACH. WILL CPOC.
[2016-09-18 16:00] VITALS: BP 144/62
[2016-09-18 19:00] VITALS: BP 153/75
--- NOTE | 2016-09-18 22:24 | NUR ---
INITIAL ROUNDS COMPLETED AT 1915 HRS. PT UP IN CHAIR WITH AT BEDSIDE. NAD. ASSESSMENT COMPLETED AT 2009 HRS. VSS. SR PER CM HR 90. IV TO RFA SL. LUNGS DIMINISHED BILAT. O2 2.5LNC. PM MEDS GIVEN. MORPHINE 4MG SIVP GIVEN AT THAT TIME FOR C/O CP 01/04. PT CURRETNLY WATCHING TV. STATES PAIN STILL 01/04. REFUSES SCD'S. STATES HE WILL REFUSES 2400 VS. WILL CONTINUE TO MONITOR. SR UP X2, CALL LIGHT WITHIN REACH.
--- NOTE | 2016-09-19 00:43 | NUR ---
PT RESTING WITH EYES CLOSED. RESP EVEN AND REGULAR. SR UP X2, CALL LIGHT WITHIN REACH.
--- NOTE | 2016-09-19 02:21 | NUR ---
PT RESTING WITH EYES CLOSED. RESP EVEN AND REGULAR. SR UP X2, CALL LIGHT WITHIN REACH.
--- NOTE | 2016-09-19 04:35 | NUR ---
PT RESTING WITH EYES CLOSED. RESP EVEN AND REGULAR. HOME CPAP IN USE. WILL CONTINUE TO MONITOR.
[2016-09-19 05:39] LABS: BASOPHILS 1.1 % (0.0-2.0); EOSINOPHILS 6.4 % (0-7); HEMOGLOBIN 12.7 g/dL (13.5-17.5); IMMATURE GRANULOCYTES 0.2 % (0-5); LYMPHOCYTES 41.9 % (15-50); MCH 32.5 pg (26.0-34.0); MCHC 31.8 g/dL (31.0-37.0); MCV 102.3 fL (80.0-100.0); MEAN PLATELET VOLUME 11.3 fL (7.4-10.4); MONOCYTES 10.8 % (2-11); NEUTROPHILS 39.6 % (40-80); PLATELET COUNT 158 10x3/uL (130-400); RBC 3.91 10x6/uL (4.20-6.10); RDW 13.7 % (11.5-14.5)
[2016-09-19 06:12] LABS: WBC 4.5 10x3/uL (4.8-10.8)
[2016-09-19 06:29] LABS: ANION GAP 11.7 mmol/L (8-16); CALCIUM 8.3 mg/dL (8.5-10.1); CARBON DIOXIDE 26.1 mmol/L (21.0-32.0); CREATININE - SERUM 1.2 mg/dL (0.6-1.3); POTASSIUM - SERUM 3.8 mmol/L (3.5-5.1)
[2016-09-19 06:32] VITALS: BP 183/93
--- NOTE | 2016-09-19 06:41 | NUR ---
SR PER CM HR 77. DR DECKER HERE AND UPDATE GIVEN. EVENT DECORATOR AND DESIGNER INFORMED OF PROBABLE LHC TODAY. NEEDS MET; WILL CONTINUE TO MONITOR.
--- NOTE | 2016-09-19 07:05 | NUR ---
PT RESTING QUIETLY C/O CHEST PAIN AT THIS TIME
--- NOTE | 2016-09-19 07:20 | NUR ---
ASSESSMENT COMPLETED.TELEMERTY SHOWS SR. 02 AT 2 L/M PER NC. IV TO RIGHT FA. C/O CHEST PAIN . MORPHINE GIVEN FOR RELIEF. WILL MONITOR
[2016-09-19 08:07] VITALS: BP 168/73
[2016-09-19 12:07] VITALS: BP 147/54
[2016-09-19 13:03] VITALS: Ht 177.8 cm; Wt 118.4 kg
[2016-09-19 16:00] VITALS: BP 141/69
--- NOTE | 2016-09-19 16:30 | NUR ---
TO TRAINING TECHNICIAN PER WHEELCHAIR
--- NOTE | 2016-09-19 16:45 | NUR ---
TO DISTRIBUTION ENGINEER PER BED
[2016-09-19 19:00] VITALS: BP 189/77
--- NOTE | 2016-09-19 19:03 | NUR ---
SITTING UP IN BED, AAOX3, SKIN WARM AND DRY, RESP UNLABORED, IV PATENT TO LEFT FOREARM, FEM STOP IN USE TO RIGHT GROIN, NO BLEEDING OR SWELLING NOTED AT CATH SITE, O2@2LNC, AT BEDSIDE, NO DISTRESS NOTED
--- NOTE | 2016-09-19 19:24 | NUR ---
LYING QUIETLY. STATES PAIN IS DOWN TO A 4. V/S STABLE WITH DRSG DRY AND INTACT TORIGHT GROIN. FEM STOP IN PLACE. TELELMERTY SHOWS SR
--- NOTE | 2016-09-20 00:56 | NUR ---
PT RESTING, BED LOW AND LOCKED, CALL LIGHT IN REACH. TELELMETRY SHOWING 67 BPM IN NSR. USING HOME CPAP WITH 2L O2. NO ACUTE SIGNS/SYMPTOMS OF ACUTE DISTRESS NOTED. WILL CONTINUE TO MONITOR.
--- NOTE | 2016-09-20 06:42 | NUR ---
PREOP COMPLETE FOR [facility], AT BEDSIDE
--- NOTE | 2016-09-20 08:12 | NUR ---
PATIENT OFF THE UNIT TO BEDSPRING ASSEMBLER.
[2016-09-20 08:31] VITALS: BP 181/76
--- NOTE | 2016-09-20 09:01 | NUR ---
RECIEVED PATIENT TO ROOM ACCOMPANIED BY POWER DISTRIBUTION ENGINEER STAFF. HE IS AWAKE, SLEEPS QUICKLY, EASILY AROUSED. HE RATED HIS JAW PAIN A 7 1/2. INDICATED IT WAS BILATERAL. VSS, O2 SAT 94%. EACH GROIN IS SOFT WITH MINIMAL BRUISING. DRESSINGS ARE CLEAN AND INTACT. IV TO LEFT FOREARM IS PATENT. IS AT THE BEDSIDE. MONITORING CLOSELY.
--- NOTE | 2016-09-20 09:58 | NUR ---
PATIENT ON 3 LITERS O2 PER NC. CALL PLACED TO RT FOR HELP ADJUSTING O2 TO THE CPAP MACHINE. HE HAD REQUESTED THE CPAP FOR COMFORT/SLEEP. SATS FELL TO 86%.
--- NOTE | 2016-09-20 10:34 | NUR ---
Patient Name: JACKELIN MOORE Admission Status: ER Accout number: [id number] Admission Date: 09-17-2016 : 1945 Admission Diagnosis: Attending: CONSTANZA Current LOS: 3 Anticipated DC Date: 09-20-2016 Planned Disposition: Home Primary Insurance: [facility] Discharge Planning Comments: * Is the patient Alert and Oriented? Yes 0 * How many steps to enter\exit or inside your home? 2-3 0 * PCP DR. DECKER 0 * Pharmacy [facility] [address] 0 * Preadmission Environment Home with Family 0 * ADLs Independent 0 * Equipment Cane CPAP Walker 0 * Other Equipment [employer] - MEDICAL EQUIPMENT PROVIDER PREFERENCE 0 * List name and contact numbers for known caregivers / representatives who currently or will assist patient after discharge: LIS MOORE, SPOUSE, 0 * Community resources currently utilized None 0 * Please name any agencies selected above. NONE 0 * Additional services required to return to the preadmission environment? No 0 * Can the patient safely return to the preadmission environment? Yes 0 * Has this patient been hospitalized within the prior 30 days at any hospital? No 0 CM MET WITH PT AND SPOUSE IN ROOM TO DISCUSS DISCHARGE PLANNING AND NEEDS. PT REPORTS LIVING AT HOME INDEPENDENTLY WITH SPOUSE. PT HAS CANE, CPAP AND A WALKER FROM [employer] (FORMER[facility] [employer] [facility] [employer]). PT DOES NOT USE HIS WALKER AND SOMETIMES USES HIS CANE. PT IS EMPLOYED AN ICU NURSE. PT HAS NO OUTSIDE SERVICES ASSISTING IN THE HOME. CM DISCUSSED AVAILABILITY OF HOME HEALTH, REHAB SERVICES AND MEDICAL EQUIPMENT. PT DENIES DISCHARGE NEEDS AT THIS TIME, REPORTS HIS SPOUSE WILL PICK HIM UP FOR DISCHARGE HOME. PT DENIES DISCHARGE NEEDS AT THIS TIME, CM TO FOLLOW AND ASSIST IF NEEDED. - Tutoring Assistant: Jerardo Mcnally
--- NOTE | 2016-09-20 11:11 | NUR ---
PATIENT RESTING AT 30% REVERSE [place]. IS SATURATION FLUCTUATES BETWEEM 84% AND 94% DEPENDING HOW DEEPLY HE BREATHES. CONTINUOUS PULSE OX REMAINS ON AND HE RESPONDS APPROPRIATELY TO THE ALARM BY TAKING DEEPER BREATHS. HIS BLE ARE WITHOUT EDEMA BUT HIS BUE HAVE GENERALIZED EDEMA EVIDENT. CALL PLACED TO TABLET MAKING MACHINE OPERATOR FOR PERMISSION TO DRAW A BNP. RECEIVED. RT HAS FIXED THE CPAP TO INFUSE O2. O2 CURRENTLY INFUSING AT 6LPM. NC AVAILABLE AT HIS SIDE, O2 IS ALSO INFUSING AT 6LPM SHOULD HE NEED IT.
--- NOTE | 2016-09-20 11:28 | NUR ---
PATINT'S RIGHT GROIN IS SOFT AND WITHOUT BRUISING. HE REQUESTS TO SIT UPRIGHT, ENCOURAGED TO RELAX.
[2016-09-20 11:39] LABS: CALCIUM 8.4 mg/dL (8.5-10.1); CARBON DIOXIDE 26.7 mmol/L (21.0-32.0); CHLORIDE - SERUM 105 mmol/L (98-107); GLUCOSE 99 mg/dL (74-106); PRO BNP 92 pg/mL (0-125); SODIUM 138 mmol/L (136-145); eGFR NON AFRICAN AMERICAN 78 mL/min (90-120)
[2016-09-20 11:40] LABS: CALC OSMOLALITY 276 mosm/kg (275-300); POTASSIUM - SERUM 4.5 mmol/L (3.5-5.1); UREA NITROGEN 14 mg/dL (7-18)
[2016-09-20 11:42] VITALS: BP 127/65
--- NOTE | 2016-09-20 12:34 | NUR ---
PATIENT RESTING ON HIS BACK, STATES THAT IT HURTS, WANTS TO MOVES, ENCOURAGED PATIENCE. HIS RIGHT GROIN REMAINS SOFT AND WITHOUT EVIDENCE OF BLEEDING.
--- NOTE | 2016-09-20 14:09 | NUR ---
PATIENT SITTING UP ON THE BEDSIDE. WEARING O2 PER NC AT 6LPM. REMOVED IN PREPARATION FOR WALKING TEST FOR OXYGEN
--- NOTE | 2016-09-20 14:32 | NUR ---
JAISON WALKED WITH RT AND SHE REPORTS TO ME THAT HE DID QUALIFY FOR OXYGEN. CASE MANAGEMENT NOTIFIED.
--- NOTE | 2016-09-20 14:58 | NUR ---
Patient Name: JACKELIN MOORE Encounter No: [id number] : 1945 Primary Insurance: MEDICARE A & B Anticipated DC Date: 09-20-2016 Planned Disposition: Home DCP follow-up note: CM RECEIVED RESPIRATORY NOTATION, PT SATS 88% ON ROOM AIR DURING AMBULATION, REQUIRES 2LITERS OXYGEN FOR RECOVERY. CM MET WITH PT AND SPOUSE IN ROOM TO DISCUSS OXYGEN NEEDS, PT REPORTS HE HAS MEDICARE A & P WELL SUPPLEMENT FROM [employer]; PT REQUESTS OXYGEN FROM [facility]. IMPORTANT MESSAGE FROM MEDICARE PROVIDED AND EXPLAINED. CM CALLED AND SPOKE TO HEATHER AT [facility] WHO WILL ARRANGE PORTABLE OXYGEN AND DELIVERY TO HOSPITAL FOR PT'S DISCHARGE UPON RECEIPT OF ORDER. CM SPOKE TO MATERIALS HANDLING COORDINATOR WHO HAS LEFT MESSAGE ASKING FOR DR. DECKER TO RETURN CALL REGARDING ORDERS. CM WAITING ORDER FOR OXYGEN TO COMPLETE ARRANGEMENTS FOR PORTABLE/HOME OXYGEN. Jerardo Mcnally, CASE MANAGEMENT
--- NOTE | 2016-09-20 15:41 | NUR ---
ORDERED WALK TEST PERFORMED BY ELLIS SHAW CRT WITH RESULTS FOLLOWS: RESTING ROOM AIR SPO2: 94% ROOM AIR SPO2 WITH EXERCISE/AMBULATION: 88% SPO2 ON SL NC WITH EXERCISE/AMBULATION: 94% WALK TEST DOCUMENTATION FORM PLACED IN PT'S CHART.
[2016-09-20 15:51] VITALS: BP 130/49
--- NOTE | 2016-09-20 16:23 | NUR ---
Patient Name: JACKELIN MOORE Encounter No: [id number] : 1945 Primary Insurance: MEDICARE A & B Anticipated DC Date: 09-20-2016 Planned Disposition: Home DCP follow-up note: JAMES CALLED [facility], , SPOKE TO GISELL WHO REPORTS EYELET MAKER ON THE WAY TO DELIVER PORTABLE TO PT'S ROOM, WILL OBTAIN DR. GRULLON ON ORDER FROM DR. DECKER IN THE OFFICE. [facility] WILL ARRANGE HOME UNIT DELIVERY WITH PT. CM FAXED REFERRAL TO [facility], . Jerardo Mcnally, CASE MANAGEMENT
--- NOTE | 2016-09-20 17:00 | NUR ---
ALBINO DISCHARGED WITH GUARD TO RETURN TO RETIREMENT VIA VAN.
--- NOTE | 2016-09-20 17:07 | NUR ---
PATIENT IS DRESSED AND READY TO LEAVE. HE HAS BEEN UP AMBULATING IN THE HALLWAY. IV CATHETER REMOVED FROM THE LEFT FOREARM FULLY INTACT. IS ALSO AT THE BEDSIDE. HIS PORTABLE O2 HAS BEEN DELIVERED.
[2016-09-20] MEDS ORDERED: PLAVIX75 MG PO (17:12)
--- NOTE | 2016-09-20 17:55 | NUR ---
REVIEWED DISCHARGE INSTRUCTIONS WITH THE PATIENT. HE IS FAMILIAR WITH PROCEDURE AND ANXIOUS TO GET HOME. HIS AND SON ARE AT THE BEDISDE. FOLLOW UP APPTS DISCUSSED, PATIENT DENIES QUESTIONS.
--- NOTE | 2016-09-21 14:16 | CN ---
PATIENT NAME:JACKELIN MOORE MEDICAL RECORD: [id number] : [birth year] LOCATION:[facility].2122 ADMIT DATE: 09/17/16 ACCOUNT: [id number] CONSULTING PHYSICIAN: PETER ACOSTA MD REFERRING PHYSICIAN: HERMELINDA DECKER DO DATE OF CONSULTATION: 09/17/2016 Cardiology Consultation HISTORY OF PRESENT ILLNESS: This is a 71-year-old gentleman with a known history of coronary artery disease, history of intervention to the right in 2011. He has a history of obstructive pulmonary disease with reactive component. He has been having more dyspnea and chest pain particularly over the last 48 hours. He received a little bit of relief with the treatments yesterday evening; however, the symptoms returned fairly rapidly. Currently, enzymes are negative. ECG without acute change. We were asked to see him concerning his cardiovascular status. PAST MEDICAL HISTORY: 1. History of obstructive pulmonary disease with reactive component. 2. Coronary artery disease as described. 3. Hypertension. 4. Hyperlipidemia. 5. Gastroesophageal reflux disease. MEDICATIONS: Typically include Singulair 10 q.h.s., temazepam 30 q.h.s., Ativan 1 mg q.4 p.r.n., [place] 10/325 q.6 p.r.n., aspirin 81 mg daily, lisinopril 40 every day, Lipitor 20 every day, Norvasc 2.5 every day, and Combivent inhaler 4 times every day. ALLERGIES: None known. REVIEW OF SYSTEMS: The patient reports easy bruising but reports no swollen glands. The patient reports no fever, no night sweats, no significant weight gain, no significant weight loss. No significant exercise tolerance. The patient reports no dry eyes, no irritation, no vision change. Patient reports no difficulty hearing and no ear pain. Patient reports no frequent nose bleeds or nose and sinus problems. Patient reports on arm pain on exertion. No shortness of breath while lying down. No history of heart murmur. Patient reports no cough, no wheezing or coughing up blood. Patient reports no abdominal pain, no vomiting. Normal appetite. No diarrhea and not vomiting blood. No nausea and no constipation. Patient reports no incontinence. No difficulty urinating. No hematuria. No increased frequency. Patient reports no muscle aches. No weakness, no arthralgias, no back pain. No swelling of the extremities. Patient reports no abnormal mole, no jaundice, no rashes. Reports no loss of consciousness. No weakness and no numbness. No seizures, dizziness, or headaches. The patient reports no depression, no sleep disturbance, feeling safe in a relationship and no alcohol abuse. Patient reports on fatigue. Reports no runny nose or sinus pressure. No itching, no hives, and no frequent sneezing. SOCIAL HISTORY: Works here at [employer]. Former smoker. Easily takes care of all ADLs. No set exercise program. PHYSICAL EXAMINATION: CONSULT REPORT [id number] JACKELIN MOORE GENERAL: Pleasant gentleman in no acute distress. VITAL SIGNS: Blood pressure 159/73, pulse 75 and regular. HEENT: Normocephalic and atraumatic. NECK: No JVD or bruit. HEART: Regular. LUNGS: Slightly prolonged expiratory phase with few expiratory wheezes. ABDOMEN: Soft and nontender. EXTREMITIES: Pulses well preserved, 2+, with no edema. NEUROLOGICAL: Grossly intact. DIAGNOSTIC DATA: ECG shows right bundle left axis, no acute changes. Enzymes are negative. IMPRESSION: Progressive angina. PLAN: We will plan for a treadmill stress testing, probably should have this done via Dr. Robledo. We will plan on Monday. Further recommendations based on the above. TRANSINT:[id number] Voice Confirmation ID: [id number] DOCUMENT ID: [id number] PETER ACOSTA MD at 1416 CC: [id number] DICTATION DATE: 09/17/16 0958 CONCRETE PAVING MACHINE OPERATOR: 09/17/16 1454 DIS IN 09/20/16 [place] [id number] [place] [address]
--- NOTE | 2016-09-26 14:16 | OP ---
PATIENT NAME: JACKELIN MOORE MEDICAL RECORD: [id number] :[birth year] LOCATION:D. D.2122 ADMISSION DATE:09/17/16 SURGEON: MODESTA HEATH MD DATE OF OPERATION: 09/19/2016 PROCEDURES: 1. PTCA stent RCA PLV. 2. PTCA stent RCA PDA. 3. Left heart catheterization. 4. Selective coronary angiography. 5. Left ventriculogram. PROCEDURE PERFORMED: After informed consent was obtained and after a detailed explanation of the risks, benefits as well as alternative therapies, the patient elected to proceed with angiogram and angioplasty. The right femoral area was prepped and draped in normal sterile fashion. The right femoral artery was cannulated via modified Seldinger technique with placement of 7-Japanese sheath. All catheters exchanged through this sheath. FINDINGS: Left ventriculogram was performed in standard 30-degree DEWEY view, reveals preserved ejection fraction at 50%. SELECTIVE CORONARY ANGIOGRAPHY: 1. Left main is really nonexistent. There are separate ostium of the left circumflex and LAD. 2. Left anterior descending has moderate irregularities, but no flow-limiting stenosis. Previously placed stent is widely patent. 3. Left circumflex has at least 70% stenosis proximally. This is hazy better delineated by intravascular ultrasound. Otherwise, previously placed stents in the circumflex are widely patent. Circumflex elsewise has moderate irregularities. 4. The right coronary has a previously placed stent. Distally, this is widely patent. However, after this, there is a ring-like lesion affecting the PDA and PLV, this is 80% to 90%. PTCA STENT OF THE RCA: PDA was addressed with a 2.5 x 8 mm Resolute. The PLV with a 3.0 x 8 mm Resolute. Result was 0% residual. OVERALL IMPRESSION: Successful percutaneous transluminal coronary angioplasty stent of the right coronary artery going from 80% to 90% initial stenosis to 0% residual. PLAN: For PTCA stent of the left circumflex in the near future. TRANSINT:[id number] Voice Confirmation ID: [id number] DOCUMENT ID: [id number] MODESTA HEATH MD at 1416 CC: [id number] DICTATION DATE: 09/19/161714 CAKE ICER AND PACKER: 09/19/16 1921 DIS IN 09/20/16 [facility] [address] [place] [address]
--- NOTE | 2016-09-26 14:16 | DS ---
PATIENT:JACKELIN PITTMAN :[birth year] MEDICAL RECORD: [id number] DISCHARGE SUMMARY ADMISSION DATE: 09/17/16 DISCHARGE DATE: 09/20/16 DISCHARGE DIAGNOSES: 1. Angina, unstable. 2. Coronary artery disease. 3. Percutaneous transluminal coronary angioplasty stent right coronary artery and left circumflex this admission. 4. Chronic obstructive pulmonary disease. 5. Smoking history. 6. Hypertension. 7. Hyperlipidemia. HOSPITAL COURSE: Mr. Pittman presents with unstable anginal symptomatology, found to have 2-vessel coronary artery disease of the left circumflex and RCA, underwent stress test for PTCA stent of above territories. He had an uneventful postop course with no further anginal symptomatology. He was discharged home with no change in his medications as he is already on aspirin and Plavix. We will follow up with [facility] in 1 month. TRANSINT:[id number] Voice Confirmation ID: [id number] DOCUMENT ID: [id number] MODESTA HEATH MD at 1416 CC: [id number] DICTATION DATE: 09/20/16 0836 MEAT BONER AND SLICER: 09/20/16 0856 DIS IN 09/20/16 [place] [id number] [place] [id number]
--- NOTE | 2016-09-26 14:16 | OP ---
PATIENT NAME: JACKELIN MOORE MEDICAL RECORD: [id number] :[birth year] LOCATION:D.M2 D.2122 ADMISSION DATE:09/17/16 SURGEON: MODESTA HEATH MD DATE OF OPERATION: 09/20/2016 PROCEDURES: 1. PTCA stent left circumflex, first obtuse marginal. 2. PTCA left circumflex. 3. Selective coronary angiography. INDICATION: Angina and coronary artery disease. PROCEDURE IN DETAIL: After informed consent was obtained and after detailed explanation of risks, benefits as well as alternative therapies, the patient elected to proceed with angiogram and angioplasty. The left femoral area was prepped and draped in normal sterile fashion. Left femoral artery was cannulated via modified Seldinger technique with placement of 6-S[place]omean sheath. All catheters exchanged through this sheath. FINDINGS: The left circumflex 70% blocked, the first obtuse marginal was 90% blocked. Above territories were ballooned with 3.0 x 20 balloon. The stent went into the first obtuse marginal. This was a 2.75 x 14 mm Resolute stent. Result was 0% residual stenosis. OVERALL IMPRESSION: Successful percutaneous transluminal coronary angioplasty stent of the left circumflex going from 80% to 90% initial stenosis to 0% residual. TRANSINT:[id number] Voice Confirmation ID: [id number] DOCUMENT ID: [id number] MODESTA HEATH MD at 1416 CC: [id number] DICTATION DATE: 09/20/16 0837 BUS BOY: 09/20/16 0904 DIS IN 09/20/16 [place] [id number]
== END 2016-09-20 17:00 | disposition home or self-care (01) | DRG 247 ==
LOC: D.ER 05:17 → D.M2 06:42
PROVIDERS: Family Medicine; Internal Medicine Interventional Cardiology; ADMIT Family Medicine
PROC: 4A023N7 Measurement of Cardiac Sampling and Pressure, Left Heart, Percutaneous Approach (ICD-10-PCS; 2016-09-19)
PROC: B2111ZZ Fluoroscopy of Multiple Coronary Arteries using Low Osmolar Contrast (ICD-10-PCS; 2016-09-19)
PROC: B2151ZZ Fluoroscopy of Left Heart using Low Osmolar Contrast (ICD-10-PCS; 2016-09-19)
PROC: 027135Z Dilation of Coronary Artery, Two Arteries with Two Drug-eluting Intraluminal Devices, Percutaneous Approach (ICD-10-PCS; principal; 2016-09-19 11:30)
PROC: 027034Z Dilation of Coronary Artery, One Artery with Drug-eluting Intraluminal Device, Percutaneous Approach (ICD-10-PCS; 2016-09-20)
PROC: 02703ZZ Dilation of Coronary Artery, One Artery, Percutaneous Approach (ICD-10-PCS; 2016-09-20)
DX: I25.110 Atherosclerotic heart disease of native coronary artery with unstable angina pectoris (principal); Z95.5 Presence of coronary angioplasty implant and graft; E78.5 Hyperlipidemia, unspecified; I10 Essential (primary) hypertension; G47.00 Insomnia, unspecified; J44.9 Chronic obstructive pulmonary disease, unspecified; K21.9 Gastro-esophageal reflux disease without esophagitis; Z87.891 Personal history of nicotine dependence

== ENCOUNTER → 2017-06-15 13:00 | Outpatient (CLI) | payer MEDICARE ==
[2016-09-19 13:03] VITALS: BMI 37.4
[~2017-06-15 13:00] MED LIST: ATIVAN1 MG PO; BAYER CHEWABLE81 MG PO; BENADRYL50 MG PO; BENZONATATE200 MG PO; BREO ELLIPTA 11 EACH INH; CARDURA XL4 MG/BOTTL PO; COLACE100 MG PO; COMBIVENT RESPIM4 GM INH; FLOMAX0.4 MG PO; HYDROCODONE-APA1 TAB PO; K-TAB10 MEQ PO; LASIX40 MG PO; LIPITOR20 MG PO; LIPITOR40 MG PO; MEDROL DOSE PACK4 MG PO; MUCINEX600 MG PO; NORVASC2.5 MG PO; PLAVIX75 MG PO; RANEXA500 MG PO; SINGULAIR10 MG PO; TEMAZEPAM30 MG PO; XARELTO10 MG PO; ZESTRIL40 MG PO
== END | disposition home or self-care (01) ==
LOC: D.RT 06-06 09:00 → D.RAD 06-06 10:00 → D.RT 13:00
DX: J44.9 Chronic obstructive pulmonary disease, unspecified (principal)

== ENCOUNTER 2017-07-13 07:15 | Inpatient (IN) | payer MEDICARE ==
[~2017-07-13] VITALS: Ht 177.8 cm; Wt 131.8 kg
[~2017-07-13 07:15] MED LIST changes: -BENADRYL50 MG PO; -CARDURA XL4 MG/BOTTL PO; -COLACE100 MG PO; -FLOMAX0.4 MG PO; -K-TAB10 MEQ PO; -LASIX40 MG PO; -LIPITOR40 MG PO; -MEDROL DOSE PACK4 MG PO; -RANEXA500 MG PO; -XARELTO10 MG PO
[2017-07-13 07:38] LABS: BASOPHILS 0.4 % (0-2); EOSINOPHILS 1.6 % (0-7); HEMATOCRIT 36.2 % (42.0-54.0); HEMOGLOBIN 11.9 g/dL (13.5-17.5); IMMATURE GRANULOCYTES 0.4 % (0-5); LYMPHOCYTES 39.8 % (15-50); MCH 34.6 pg (26.0-34.0); MCHC 32.9 g/dL (31.0-37.0); MCV 105.2 fL (80.0-100.0); MONOCYTES 10.9 % (2-11); NEUTROPHILS 46.9 % (40-80); RBC 3.44 10x6/uL (4.20-6.10); RDW 15.6 % (11.5-14.5); WBC 5.6 10x3/uL (4.8-10.8)
[2017-07-13 07:39] LABS: PLATELET COUNT 198 10x3/uL (130-400)
[2017-07-13 07:50] LABS: APTT 30.2 SECONDS (22.8-39.4); INR 0.93 (0.85-1.17); PROTIME 12.3 SECONDS (11.6-15.0)
[2017-07-13 07:52] LABS: ALBUMIN 3.6 g/dL (3.4-5.0); ANION GAP 18.6 mmol/L (8-16); BILIRUBIN - TOTAL 0.19 mg/dL (0.2-1.3); CALCIUM 8.7 mg/dL (8.5-10.1); CARBON DIOXIDE 19.8 mmol/L (21.0-32.0); CREATININE - SERUM 1.9 mg/dL (0.6-1.3); POTASSIUM - SERUM 4.4 mmol/L (3.5-5.1); PROTEIN - SERUM 6.8 g/dL (6.4-8.2)
[2017-07-13 09:55] LABS: HEMOGLOBIN A1C 5.6 % (4.8-6.0)
--- NOTE | 2017-07-13 14:00 | NUR ---
PT TO ROOM 2201 FROM ER VIA BED.DRESSING RIGHT FOOT HAS SOME BLOODY DRAINAGE.ASSESSMENT PER FLOW SHEET.FAMILY AT BEDSIDE.CALL LIGHT USE INSTRUCTED AND IN REACH.
[2017-07-13 14:14] VITALS: BP 141/72
[2017-07-13] MEDS ORDERED: BENADRYL50 MG PO (16:34)
[2017-07-13 16:36] VITALS: BP 141/72; Ht 177.8 cm; Wt 131.8 kg
--- NOTE | 2017-07-13 19:35 | NUR ---
REMAINS WITHOUT NEEDS,WITHOUT CHANGE.CONT PLAN OF CARE
--- NOTE | 2017-07-13 20:09 | NUR ---
PATIENT STATED THE MORPHINE IS NOT HELPING HIS PAIN. RATED PAIN AN 8/10. CALLED PEREZ SCHNEIDER. SHE STATED D/C THE MORPHINE AND START A DILAUDID BACKROOM ASSOCIATE, SEE ORDERS. RIGHT LEG ELEVATED ON A PILLOW. ELEVATED ON A SECOND PILLOW. CAPILLARY REFILL <3 SECONDS IN RIGHT FOOT. PALPATED PULSES. PATIENT DENIES OTHER NEEDS AT THIS TIME.
[2017-07-13 21:20] VITALS: BP 127/53
[2017-07-14 03:37] LABS: UDS - AMPHET NEGATIVE QUAL (NEGATIVE); UDS - BARB NEGATIVE QUAL (NEGATIVE); UDS - BENZO NEGATIVE QUAL (NEGATIVE); UDS - COCAINE NEGATIVE QUAL (NEGATIVE); UDS - OPIATE POSITIVE QUAL (NEGATIVE); UDS - PCP NEGATIVE QUAL (NEGATIVE); UDS - THC NEGATIVE QUAL (NEGATIVE)
[2017-07-14 05:18] LABS: BASOPHILS 0.4 % (0-2); EOSINOPHILS 1.9 % (0-7); HEMATOCRIT 35.1 % (42.0-54.0); HEMOGLOBIN 11.3 g/dL (13.5-17.5); IMMATURE GRANULOCYTES 0.2 % (0-5); LYMPHOCYTES 26.9 % (15-50); MCH 34.6 pg (26.0-34.0); MCHC 32.2 g/dL (31.0-37.0); MEAN PLATELET VOLUME 10.6 fL (7.4-10.4); MONOCYTES 13.6 % (2-11); PLATELET COUNT 192 10x3/uL (130-400); RBC 3.27 10x6/uL (4.20-6.10); RDW 15.7 % (11.5-14.5); WBC 4.7 10x3/uL (4.8-10.8)
[2017-07-14 05:22] LABS: MCV 107.3 fL (80.0-100.0)
[2017-07-14 05:46] LABS: ANION GAP 13.9 mmol/L (8-16); CALCIUM 8.7 mg/dL (8.5-10.1); CARBON DIOXIDE 22.5 mmol/L (21.0-32.0); CREATININE - SERUM 1.6 mg/dL (0.6-1.3); POTASSIUM - SERUM 4.4 mmol/L (3.5-5.1)
--- NOTE | 2017-07-14 08:00 | NUR ---
ASSESSMENT PER FLOW SHEET.PT WITHOUT DISTRESS.CALL LIGHT IN REACH
[2017-07-14 08:02] VITALS: BP 157/58
[2017-07-14 12:26] VITALS: BP 125/57
--- NOTE | 2017-07-14 13:39 | NUR ---
UP IN CHAIR WITH PT
--- NOTE | 2017-07-14 14:38 | NUR ---
Patient Name: JACKELIN MOORE Admission Status: ER Accout number: [id number] Admission Date: 07-13-2017 : 1945 Admission Diagnosis:DISP FX OF FIFTH METATARSAL BONE, R FOOT, INIT FOR OPN Attending: JACKELIN DELACRUZ Current LOS: 1 Anticipated DC Date: 07-18-2017 Planned Disposition: Home Primary Insurance: MEDICARE A & B Discharge Planning Comments: CM MET WITH PATIENT REGARDING D/C NEEDS AND PLANS. PATIENT STATED HE LIVES WITH HIS (LIS) AND SHE OR THEIR SON WILL DRIVE HIM HOME AT DISCHARGE. PATIENT STATED HE HAS 2 STEPS TO ENTER HOME AND HAS 1 FLIGHT DOWNSTAIRS WHICH HE DOES NOT USE. PATIENT STATED HE HAS A WALKER, SHOWER CHAIR, CANE, C-PAP, AND NEBULIZER AT HOME. PATIENTS PCP IS DR. DECKER AND PHARMACY IS [facility] [address]. PATIENT STATED HE MIGHT NEED HOME HEALTH AND WILL DISCUSS WITH HIS . CM WILL CONTINUE TO FOLLOW PATIENT WITH D/C NEEDS AND PLANS. PCP DR. JERONIMO [facility] [address]- [phone] LIS () [phone] Concrete Finishing Machine Operator: Stephanie Carias Is the patient Alert and Oriented? Yes 0 * How many steps to enter\exit or inside your home? 2 w/rails 0 * PCP DR. DECKER 0 * Pharmacy [facility] [address] 0 * Preadmission Environment Home with Family 0 * ADLs Independent 0 * Equipment Cane CPAP Nebulizer Oxygen Shower Chair Walker 0 * List name and contact numbers for known caregivers / representatives who currently or will assist patient after discharge: LIS () [phone] * Community resources currently utilized None 0 * Additional services required to return to the preadmission environment? Yes 0 * Can the patient safely return to the preadmission environment? Yes 0 * Has this patient been hospitalized within the prior 30 days at any hospital? No 0 Grand Total: 0
[2017-07-14 15:51] VITALS: BP 133/53
--- NOTE | 2017-07-14 17:58 | NUR ---
REMAINS WITHOUT CHNAGE FROM INITIAL SHIFT ASSESSMENT.CONT PLAN OF CARE
[2017-07-14 20:00] VITALS: BP 122/59
[2017-07-15 04:00] VITALS: BP 123/55
[2017-07-15 05:13] LABS: BASOPHILS 0.2 % (0-2); EOSINOPHILS 1.3 % (0-7); HEMATOCRIT 31.7 % (42.0-54.0); HEMOGLOBIN 10.3 g/dL (13.5-17.5); IMMATURE GRANULOCYTES 0.2 % (0-5); LYMPHOCYTES 19.7 % (15-50); MCH 35.2 pg (26.0-34.0); MCHC 32.5 g/dL (31.0-37.0); MCV 108.2 fL (80.0-100.0); MEAN PLATELET VOLUME 10.3 fL (7.4-10.4); MONOCYTES 14.8 % (2-11); NEUTROPHILS 63.8 % (40-80); PLATELET COUNT 180 10x3/uL (130-400); RBC 2.93 10x6/uL (4.20-6.10); RDW 15.3 % (11.5-14.5); WBC 4.5 10x3/uL (4.8-10.8)
[2017-07-15 05:38] LABS: ALBUMIN 3.2 g/dL (3.4-5.0); ANION GAP 14.6 mmol/L (8-16); BILIRUBIN - TOTAL 0.43 mg/dL (0.2-1.3); CALCIUM 8.5 mg/dL (8.5-10.1); CARBON DIOXIDE 22.8 mmol/L (21.0-32.0); CREATININE - SERUM 1.6 mg/dL (0.6-1.3); POTASSIUM - SERUM 4.4 mmol/L (3.5-5.1); PROTEIN - SERUM 6.3 g/dL (6.4-8.2)
--- NOTE | 2017-07-15 07:49 | NUR ---
PATIENT RESTING IN HIS BED AND WATCHING T.V. PATIENT IS AWAKE, ALERT, AND ORIENTED X4. NI COMPLAINTS OF PAIN AT PRESENT TIME. NETWORK AND THREAT SUPPORT SPECIALIST DILAUDID IN USE FOR PAIN CONTROL. OXYGEN IN USE AT 2L PER NC. PATIENT STATES HE IS SOB "ALL THE TIME". SCD IN PLACE TO LEFT LOWER EXTREMITY. CALL LIGHT IN PATIENT'S REACH. WILL MONITOR PATIENT FOR ANY NEEDS.
[2017-07-15 09:38] VITALS: BP 101/42
[2017-07-15 13:41] VITALS: BP 111/44
--- NOTE | 2017-07-15 15:47 | NUR ---
PATIENT RESTING WITH HIS EYES CLOSED. SNORING NOTED. NO S/S OF DISTRESS NOTED. CALL LIGHT IN PATIENT'S REACH. WILL MONITOR PATIENT FOR ANY NEEDS.
[2017-07-15 15:51] VITALS: BP 110/54
[2017-07-15 20:00] VITALS: BP 126/59
[2017-07-16] VITALS: BP 117/50
[2017-07-16 04:00] VITALS: BP 115/57
--- NOTE | 2017-07-16 05:21 | NUR ---
ASSISTED PT INTO WHEELCHAIR INTO THE BATHROOM. HIS OXYGEN TUBING DID REACH, BUT HE WAS VERY SHORT OF BREATH ON EXERTION. GAVE PT BOLUS THROUGH SWEETBREAD TRIMMER ONE TIME TONIGHT. COMPLETE ASSESSMENT PER FLOW-SHEET. WILL CONTINUE TO MONITOR.
[2017-07-16 08:15] VITALS: BP 117/63
[2017-07-16 12:41] VITALS: BP 134/59
--- NOTE | 2017-07-16 12:51 | NUR ---
1230 JAMES MET WITH THE PATIENT , HIS DAUGHTER AND 2 GRANDDAUGHTERS WERE AT THE BEDSIDE. HE WANTS A REFERRAL SENT TO [facility] FROM [facility]. CONTACT PHONE NUMBER IS [phone]. JAMES CALLED AND SPOKE WITH DAVID. SHE STATED TO CALL BACK ON MONDAY TO SPEAK WITH THE ADMISSIONS COORDINATON. FAX CLINICAL TO [phone] TO ATT [facility]O. JAMES TO F/U ON MONDAY.
--- NOTE | 2017-07-16 13:24 | NUR ---
REMOVED OLD DRESSING RIGHT FOOT, SATURATED WITH BRIGHT RED BLOOD. CLEANSED WOUND WITH WOUND CLEANSER AND 4X4. DRESSED RIGHT FOOT WITH XEROFORM COVERED WITH 4X4 AND WRAPPED WITH KERLEX. PT TOLERATED WELL. EDUCATED PT ON WEARING ORTHO SHOE WHEN UP, PT AGREED TO TRY WEARING SHOE.
[2017-07-16 13:48] LABS: CKMB 1.6 U/L (0.0-3.6); CREATINE KINASE 387 UL (21-232)
[2017-07-16 13:49] LABS: TROPONIN-I < 0.017 ng/mL (0.000-0.060)
--- NOTE | 2017-07-16 15:00 | NUR ---
ADMINISTERED NORCO 10MG AND ATIVAN PER PT REQUEST FOR ANXIETY AND C/O PAIN 4/10 ACHING RIGHT FOOT. ALERT AND ORIENTED X4. NO S/SX OF ACUTE DISTRESS. CALL LIGHT AND PERSONAL ITEMS WITHIN REACH, BED LOW, SR X3. WILL CONTINUE TO MONITOR
--- NOTE | 2017-07-16 15:44 | NUR ---
4897 REFERRAL FAXED TO [facility] FOR REVIEW BY CHEF DE FROID IN THE AM.
[2017-07-16 16:40] VITALS: BP 135/76
--- NOTE | 2017-07-16 18:27 | NUR ---
SITTING UP IN BED WATCHING TV. DENIES ANY NEEDS. C/O RIGHT FOOT PAIN 4/10 ACHING BUT DOES NOT WANT ANY PAIN MEDS AT THIS TIME. NO S/SX OF ACUTE DISTRESS. WILL CONTINUE TO MONITOR
[2017-07-16 19:36] LABS: CKMB 1.3 U/L (0.0-3.6); CREATINE KINASE 322 UL (21-232)
[2017-07-16 19:37] LABS: TROPONIN-I < 0.017 ng/mL (0.000-0.060)
[2017-07-16 20:00] VITALS: BP 131/53
--- NOTE | 2017-07-16 20:00 | NUR ---
ASSISTED PT UP TO BEDSIDE COMMODE. PT EXTREMELY DYSPNEIC WITH MINIMAL EXERTION. BACK TO BED. GAVE ATIVAN FOR ANXIETY AND DILAUDID FOR PAIN. RIGHT FOOT ELEVATED ON PILLOWS. NO OTHER NEEDS. WILL CONTINUE TO MONITOR.
[2017-07-17] VITALS (7 sets, daily range): BP systolic 123–171; BP diastolic 51–86
[2017-07-17 01:54] LABS: CKMB 1.2 U/L (0.0-3.6); CREATINE KINASE 290 UL (21-232); TROPONIN-I < 0.017 ng/mL (0.000-0.060)
[2017-07-17 04:22] LABS: BASOPHILS 0.2 % (0-2); EOSINOPHILS 2.7 % (0-7); HEMATOCRIT 30.3 % (42.0-54.0); HEMOGLOBIN 9.7 g/dL (13.5-17.5); LYMPHOCYTES 22.8 % (15-50); MCH 34.9 pg (26.0-34.0); MEAN PLATELET VOLUME 10.1 fL (7.4-10.4); MONOCYTES 15.5 % (2-11); NEUTROPHILS 58.8 % (40-80); PLATELET COUNT 188 10x3/uL (130-400); RBC 2.78 10x6/uL (4.20-6.10); RDW 15.4 % (11.5-14.5); WBC 4.1 10x3/uL (4.8-10.8)
[2017-07-17 04:46] LABS: ANION GAP 12.7 mmol/L (8-16); CALCIUM 9.2 mg/dL (8.5-10.1); CARBON DIOXIDE 25.7 mmol/L (21.0-32.0); CREATININE - SERUM 1.2 mg/dL (0.6-1.3); POTASSIUM - SERUM 4.4 mmol/L (3.5-5.1)
--- NOTE | 2017-07-17 08:30 | NUR ---
PT SITTING ON SIDE OF BED SHORT OF BREATH PT SAYS HE IS HOT AND JUST VERY ANXIOUS WILL CHECK PTS MEDS
[2017-07-17] MEDS ORDERED: HYDROCODONE-APA1 TAB PO (08:31)
--- NOTE | 2017-07-17 08:59 | NUR ---
PT GIVEN ATIVAN AND NORCO PER DR ORDER AND PRN BREATHING TX WILL REACESS
--- NOTE | 2017-07-17 09:30 | NUR ---
PT GIVEN PRN DILAUDED PER DR ORDER PT STILL COMPLAINS OF LEVEL 10/10 PAIN TO RIGHT FOOT WILL REACESS
--- NOTE | 2017-07-17 09:30 | NUR ---
GREGORIO THIS AM FOR F/U OF FAXED REFERRAL 07/16/17. SPOKE WITH SUAD, THE ADMISSION COORDINATOR. SHE HAS RECEIVED THE REFERRAL. SHE WILL REVIEW W/ MEDICAL STAFF AND CHECK INSURANCE. AWAIT DECISION.
--- NOTE | 2017-07-17 10:00 | NUR ---
PT RESTING IN BED WITH EYES OPEN PT RESPIRATIONS UNLABORED AT THIS TIME PT STATES HE IS FEELING BETTER
--- NOTE | 2017-07-17 10:05 | NUR ---
PT NOTE-STATES SOB IS BETTER THAN THIS AM. OXYGEN ON AND NO SOB NOTED. DRESSING TO RIGHT FOOT CLEAN DRY AND INTACT. ELEVATE ON PILLOW. FAN BEING USED ON BEDSIDE TABLE. CALL LIGHT IN REACH
--- NOTE | 2017-07-17 11:29 | NUR ---
PT WANTING PAIN MEDS STATING HIS DR SAID HE COULD HAVE EVERY TWO HOURS I EXPLAINED THAT HE COULD GET HIS TWO PAIN MEDS ON A SCHEDULE BUT IT WASNT QUITE TIME FOR PAIN MEDS NOW AND IT WOULD BE AROUND 1230 PT STATED SO ITS LIGHT OUTSIDE SO I GUESS ILL WAIT 8 MORE HRS I EXPLAINED THAT IT WAS 11 AM AND THAT WAS ONLY 1 AND A HALF HOURS FROM NOW ALSO GIVE HEART MEDS DR ACOSTA ORDERED PT STATED HE DID NOT REMEBER EVER COMINT IN ROOM WILL MONITER AND TRY TO KEEP RE ORIENTATING PT
--- NOTE | 2017-07-17 12:17 | NUR ---
CM RECEIVED CB THAT PATIENT HAS BEEN ACCEPTED. THE ONSITE SCREENER, IVETTE LAI, WILL BE COMING ON SITE TO EVALUATE PATIENT'S NEEDS. 1200 MR MING VISITED. HAD QUESTION WHETHER BOOGIE WOULD BE INDICATED PATIENT HAS HX OF DEPRESSION AND ANXIETY. CM WILL F/U.
--- NOTE | 2017-07-17 15:11 | NUR ---
LATE ENTRY 1400 CM RECEIVED TC FROM NURSING ENTERPRISE SERVICES MANAGER, ALDEN, PATIENT'S HAD CALLED REGARDING REFERRAL TO A [facility] [address]". CM ADVISED ENTERPRISE SERVICES MANAGER THAT THE ONLY REFERRAL SENT WAS TO [facility] [place] PER PATIENT AND FAMILY REQUEST. TC TO LIS TERESA. ADVISED HER THE ONLY REFERRAL SENT WAS TO [facility] PER THEIR REQUEST. EXPLAINED A SCREENER CAME WHO WAS CONTRACTED W/ THAT FACILITY TO DO SCREENS IN [place], MR IVETTE LAI. CM ALSO EXPLAINED MR LAI HAD REQUESTED A BOOGIE. SHE DID NOT UNDERSTAND WHY THIS IS NECESSARY. SHE HAS A CALL INTO MR LAI. SHE TERMINATED THE CONVERSATION SHE WAS RECEIVING ANOTHER TELEPHONE CALL. CM RECEIVED A TELEPHONE CALL FROM GRACE PACE WITH [facility]. SHE HAD RECEIVED A TC FROM MRS MOORE. MS MOORE THOUGHT PATIENT WAS BEING REFERRED TO [facility]. MS PACE ASSURED HER THEY WERE NOT REDIRECTING THE PATIENT TO [facility]. BOOGIE STARTED AND FAXED TO MD OFFICE FOR SIGNATURES.
--- NOTE | 2017-07-17 15:40 | NUR ---
PT DRESSING DONE TO RIGHT FOOT PER ORDER WILL MONITER
--- NOTE | 2017-07-17 19:57 | NUR ---
PATIENT HAS HIS OWN NITROGLYCERIN TABLETS AT THE BEDSIDE, HE JUST TOOK ONE. HE SAID HE IS HAVING CHEST PAIN AND HE USES HIS NITROGLYCERIN TABLETS WHEN THIS PAIN COMES ON. HE STATED HE TOOK ONE EARLIER TODAY, JUST ONE AND THE CHEST PAIN STOPPED.
--- NOTE | 2017-07-17 20:01 | NUR ---
PATIENT STATED "MY PAIN WAS AT A 9/10, AND NOW IT IS A 1/10. THOSE THINGS ARE MIRACLES."
--- NOTE | 2017-07-17 23:51 | NUR ---
PATIENT TOOK ONE OF HIS NITROGLYCERINS. HE JUST REMOVED HIS C-PAP MASK A FEW MINUTES AGO, NASAL CANNULA AT 2L/MIN. RESPIRATIONS ARE LABORED, 26/MIN.
--- NOTE | 2017-07-17 23:57 | NUR ---
PATIENT STATED HIS CHEST PAIN IS NOW A 2/10, IT WAS A 5/10 PRIOR TO TAKING THE NITRO. HE DENIES NEEDING ANOTHER NITRO.
--- NOTE | 2017-07-18 00:02 | NUR ---
PAGEKevin PULIDO RT FOR A UPDRAFT.
[2017-07-18 04:00] VITALS: BP 177/72
[2017-07-18 05:24] LABS: BASOPHILS 0 % (0-2); EOSINOPHILS 0 % (0-7); HEMATOCRIT 29.8 % (42.0-54.0); HEMOGLOBIN 9.7 g/dL (13.5-17.5); IMMATURE GRANULOCYTES 0.3 % (0-5); LYMPHOCYTES 8.9 % (15-50); MCH 34.6 pg (26.0-34.0); MCHC 32.6 g/dL (31.0-37.0); MEAN PLATELET VOLUME 9.8 fL (7.4-10.4); MONOCYTES 5.5 % (2-11); NEUTROPHILS 85.3 % (40-80); PLATELET COUNT 196 10x3/uL (130-400); RDW 14.7 % (11.5-14.5); WBC 3.8 10x3/uL (4.8-10.8)
[2017-07-18 05:31] LABS: MCV 106.4 fL (80.0-100.0)
[2017-07-18 05:37] LABS: ANION GAP 14.4 mmol/L (8-16); CALCIUM 9.3 mg/dL (8.5-10.1); CARBON DIOXIDE 24.3 mmol/L (21.0-32.0); CREATININE - SERUM 1.1 mg/dL (0.6-1.3); POTASSIUM - SERUM 4.7 mmol/L (3.5-5.1)
--- NOTE | 2017-07-18 07:30 | NUR ---
PT AWAKE AND ALERT ORIENTED X 3 LUNGS WITH DIMINSHED BASES AND SCATTERED WHEEZING NOTED TO BILATERAL UPPER LOBES ANTERRIOR CLEARING SOMEWHAT WITH COUGH. HRR. DRESSING NOTED TO RIGHT FOOT AND ANKLE. 2+ EDEMA NOTED TO RIGHT LE
--- NOTE | 2017-07-18 07:45 | NUR ---
PATIENT IN BED WITH IV INTACT. NO COMPLAINTS AT THIS TIME. CALL LIGHT WITHIN REACH.
[2017-07-18 09:30] VITALS: BP 115/68
--- NOTE | 2017-07-18 12:00 | NUR ---
PT AGREED TO SHOWER AFTER LUNCH MEAL WILL CHANGE DRESSING AT THAT TIME.
[2017-07-18 12:15] VITALS: BP 129/67
[2017-07-18] MEDS ORDERED: FLOMAX0.4 MG PO (12:45)
[2017-07-18] MEDS ORDERED: XARELTO10 MG PO (12:46)
[2017-07-18] MEDS ORDERED: COLACE100 MG PO (12:53)
[2017-07-18] MEDS ORDERED: RANEXA500 MG PO (12:53)
[2017-07-18 16:08] VITALS: BP 139/54
[2017-07-18 19:30] VITALS: BP 110/62
--- NOTE | 2017-07-18 23:42 | NUR ---
EYES CLOSED RESPIRATIONS WITH EASE AND UNLABORED SR UP X2 CALL LIGHT WITHIN REACH.
[2017-07-18 23:50] VITALS: BP 143/49
[2017-07-19 03:30] VITALS: BP 143/77
--- NOTE | 2017-07-19 07:00 | NUR ---
REPORT RECIEVED ASSUMED CARE. PATIENT IN BED WITH CPAP ON RESTING QUIETLY. NO COMPLAINTS OR SIGNS OF DISTRESS. CALL LIGHT WITHIN REACH.
[2017-07-19 07:52] VITALS: BP 136/64
--- NOTE | 2017-07-19 08:15 | NUR ---
REPORT GIVEN TO SHARON RN AT THIS TIME. PATIENT IN BED WITH EYES CLOSED STILL RESTING QUIETLY. CALL LIGHT WITHIN REACH.
--- NOTE | 2017-07-19 08:32 | NUR ---
REPORT RECEVIED, ASSUMED CARE OF PT. SITTING UP IN BED, NO SIGNS OF ACUTE DISTRESS. L HAND IV SALINE LOCKED, DRSG C/D/I. DRSG TO R FOOT C/D/I. BED IN LOWEST POSITION, SIDE RAILS UP X 2, CALL LIGHT WITHIN REACH.
[2017-07-19 12:00] VITALS: BP 149/51
--- NOTE | 2017-07-19 14:19 | NUR ---
RECEIVED THE [facility] WITH [facility] NOTIFIED ALONG WITH HIS LIS. LIS WILL BE HERE SHORTLY TO PICK HIM UP AND TRANSPORT HIM TO [facility]IA THEIR PERSONAL CAR. THE BOOGIE AND DISCHARGE SUMMARY WAS FAXED TO [phone] CM WILL CONTINUE TO FOLLOW AND ASSIST WITH DISCHARGE PLANNING NEEDS. PATIENT WILL BE GOING TO A SKILLED BED
--- NOTE | 2017-07-19 14:30 | NUR ---
MR TERESA REQUESTED PAIN MEDICATION. NORCO 10 GIVEN. HE THEN ASDKED IFR I WOULD CHANGE HIS DRESSING ON HIS R FOOT. DRESSING REMOVED. WOUNDS WERE CLEANED WITH 4 x 4'S AND SAFE CLENS. XEROFORM DRESSING APPLIED TO BOTH WOUNDS. ONE WOUND ON THE LATERAL SIDE OF HIS R FOOT. AND ONE ON THE TOP OF HIS FOOT. 4X4'S THEN FLUFFED AND PLACED OVER WOUNDS AND WRAPPED IN 4 IN KERLIX AND TAPED. PT STATES THAT IT ALREADY FELT BETTER.
--- NOTE | 2017-07-19 15:51 | NUR ---
CM REASSESSMENT NOTE: PATIENTS IS HERE TO DRIVE PATIENT TO [facility] AND JULIANO AT [facility] WAS NOTIFIED PATIENT WAS LEAVING AT THIS TIME.
--- NOTE | 2017-07-19 15:56 | NUR ---
DISCHARGE INSTRUCTIONS GIVEN TO PT, VERBALIZED UNDERSTNADING AND SIGNED. L HAND IV D/C'D AT THIS TIME, BLEED CONTROL BANDAGE APPLIED.
--- NOTE | 2017-07-19 16:30 | NUR ---
PT DISCHARGED FROM FLOOR VIA WHEELCHAIR WITH HOSPITAL STAFF, PERSONAL BELONGINGS WITH PT. WITH PT, LEAVING IN [facility] TO REHAB FACILITY IN .
--- NOTE | 2017-07-24 09:02 | EC ---
PATIENT:JACKELIN MOORE DATE OF SERVICE: 07/13/17 SEX: M MEDICAL RECORD: [id number] DATE OF : 43 LOCATION:[facility] AGE OF PATIENT: 72 ADMISSION DATE: 07/13/17 REFERRING PHYSICIAN: INTERPRETING PHYSICIAN: MODESTA HEATH MD ECHOCARDIOGRAM REPORT ECHO CHARGES 4 ECHO COMPLETE CLINICAL DIAGNOSIS: CAD ECHOCARDIOGRAPHIC MEASUREMENTS (adult normal given) AC root (d.<3.7cm) 3.8 cm LV Septum d (<1.2 cm> 1.9 cm Valve Excursion 1.5 cm LV Septum (systole) 2.3 cm Left Atria (s.<4.0cm> 4.2 cm LVPW d(<1.2cm) 1.5 cm RV (d.<2.3cm) 2.6 cm LVPW (sytole) 2.0 cm LV diastole(<5.6CM) 5.9 cm MV E-F(>70mm/sec) cm LV systole 3.5 cm LVOT Diameter 2.3 cm MV exc.(>10mm) cm Est.ejection fraction (50-75%) % Pericardial Effusion N DOPPLER: LVIT cm/sec A 131 cm/sec E 114 cm/sec LA cm/sec RVSP 22.4 mmHg LVOT 138 cm/sec AOP1/2T m/s Asc. Ao 194 cm/sec RVOT 96.0 cm/sec RA cm/sec PA 137 cm/sec AV Gradient Peak 15.1 mmHg AV Mean 8.1 mmHg AV Area 3.2 cm MV Gradient Peak 8.1 mmHg MV Mean 3.7 mmHg MV Area cm COMMENTS: Supervisor Floor Assembly: Bryant SABILLONOE Design Supervisor: 3 Dr. Taylor TAPE# PACS DATE OF SERVICE: 07/17/2017 Echocardiogram FINDINGS: 1. Left ventricular chamber size is within normal limits. Left ventricular systolic function is normal. Overall ejection fraction estimated at 55%. 2. Left atrium is enlarged at 4.2 cm. Right atrium and right ventricular chamber sizes are as well mildly dilated. 3. Valvular structures have normal structure and motion. ECHOCARDIOGRAM REPORT [id number] JACKELIN MOORE 4. Doppler interrogation only reveals mild tricuspid regurgitation. No other valvular insufficiency or stenosis and pulmonary systolic pressure is normal estimated at 22 mmHg. 5. No evidence of pericardial effusion or left ventricular thrombus. TRANSINT:[id number] Voice Confirmation ID: [id number] DOCUMENT ID: [id number] MODESTA HEATH MD at 0902 CC: [id number] DICTATION DATE: 07/18/17 110 RAMP SERVICE EMPLOYEE: 07/18/17 1110 DIS IN 07/19/17 [place] [id number] [place] [id number]
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
[2017-10-05] MEDS ORDERED: LIPITOR40 MG PO (00:11)
[2017-10-05] MEDS ORDERED: CARDURA XL4 MG/BOTTL PO (00:13)
[2017-10-05] MEDS ORDERED: MEDROL DOSE PACK4 MG PO (07:12)
[2017-10-05] MEDS ORDERED: K-TAB10 MEQ PO (07:12)
[2017-10-05] MEDS ORDERED: LASIX40 MG PO (07:12)
== END 2017-07-19 16:31 | DRG 563 ==
LOC: D.ER 07:15 → D.MS 12:35
PROVIDERS: Family Medicine; ADMIT Orthopaedic Surgery
DX: S92.351B Displaced fracture of fifth metatarsal bone, right foot, initial encounter for open fracture (principal); I50.32 Chronic diastolic (congestive) heart failure; D62 Acute posthemorrhagic anemia; W32.0XXA Accidental handgun discharge, initial encounter; J44.9 Chronic obstructive pulmonary disease, unspecified; I25.10 Atherosclerotic heart disease of native coronary artery without angina pectoris; I11.0 Hypertensive heart disease with heart failure; F17.200 Nicotine dependence, unspecified, uncomplicated; E11.9 Type 2 diabetes mellitus without complications

== ENCOUNTER → 2019-05-29 10:39 | Outpatient (CLI) | payer OTHER ==
[~2019-05-29 10:39] MED LIST changes: +ALBUTEROL2.5 MG/3 M INH; +BENADRYL50 MG PO; -BENZONATATE200 MG PO; +CARDURA XL4 MG/BOTTL PO; +COLACE100 MG PO; +FLOMAX0.4 MG PO; +FUROSEMIDE40 MG PO; +K-TAB10 MEQ PO; +LASIX40 MG PO; +LIPITOR40 MG PO; +MEDROL DOSE PACK4 MG PO; +RANEXA500 MG PO; +TESSALON PERLE100 MG PO; +XARELTO10 MG PO; +ZOLOFT100 MG PO
--- NOTE | 2019-06-06 13:30 | EC ---
PATIENT:JACKELIN MOORE DATE OF SERVICE: 05/29/19 SEX: M MEDICAL RECORD: [id number] DATE OF : 43 [facility] AGE OF PATIENT: 74 ADMISSION DATE: 05/29/19 REFERRING PHYSICIAN: INTERPRETING PHYSICIAN: MODESTA ROBLEDO MD ECHOCARDIOGRAM REPORT ECHO CHARGES 4 ECHO COMPLETE Date: 05/29/19 CLINICAL DIAGNOSIS: PROCTOR/ANGINA/RBBB H/O COPD ECHOCARDIOGRAPHIC MEASUREMENTS (adult normal given) AC root (d.<3.7cm) 3.5 cm LV Septum d (<1.2 cm> 1.8 cm Valve Excursion 1.5 cm LV Septum (systole) 2.6 cm Left Atria (s.<4.0cm> 4.4 cm LVPW d(<1.2cm) 1.6 cm RV (d.<2.3cm) 1.9 cm LVPW (sytole) 2.5 cm LV diastole(<5.6CM) 6.4 cm MV E-F(>70mm/sec) cm LV systole 3.1 cm LVOT Diameter 2.1 cm MV exc.(>10mm) cm Est.ejection fraction (50-75%) % DOPPLER: LVIT cm/sec A 63.0 cm/sec E 115 cm/sec LA cm/sec RVSP 20.2 mmHg LVOT 113 cm/sec AOP1/2T m/s Asc. Ao 167 cm/sec RVOT 77.0 cm/sec RA cm/sec PA 91.0 cm/sec AV Gradient Peak 11.2 mmHg AV Mean 5.8 mmHg AV Area 2.4 cm MV Gradient Peak 6.3 mmHg MV Mean 1.9 mmHg MV Area cm COMMENTS: OP - HC Stone Derrickman And Rigger: Bryant MARCELO HAMLIN Fisher Seal: 1 Dr. Robledo TAPE# PACS Pericardial Effusion N DATE OF SERVICE: 05/29/2019 RESULTS: 1. Left ventricular chamber size is mildly dilated. Left ventricular systolic function is preserved at 55% to 60%. 2. Left atrium is enlarged at 4.4 cm. Right atrium and right ventricle chamber sizes are as well mildly dilated. 3. Valvular structures have normal structure and motion. 4. Doppler interrogation reveals trace tricuspid regurgitation, no other valvular insufficiency or stenosis. Pulmonary systolic pressure is estimated at ECHOCARDIOGRAM REPORT [id number] JACKELIN MOORE 20 mmHg. 5. No evidence of pericardial effusion or left ventricular thrombus. TRANSINT:[id number] Voice Confirmation ID: [id number] DOCUMENT ID: [id number] MODESTA ROBLEDO MD at 1330 CC: [id number] DICTATION DATE: 05/29/19 1508 ELECTRIC BLASTING CAP ASSEMBLER: 05/29/19 2345 DEP CLI 05/29/19 [place] [id number]
== END | disposition home or self-care (01) ==
LOC: D.HCCECHO 10:39
PROVIDERS: ATTEND Internal Medicine Cardiovascular Disease
DX: I25.119 Atherosclerotic heart disease of native coronary artery with unspecified angina pectoris (principal)

== ENCOUNTER 2019-06-11 08:17 | Outpatient (CLI) | payer OTHER ==
[~2019-06-11] VITALS: Ht 177.8 cm; Wt 120.5 kg
--- NOTE | ~2019-06-11 | HEMODYNAMI ---
PATIENT:JACKELIN MOORE MEDICAL RECORD: [id number] : 43 [id number] ADMISSION DATE: 06/11/19 Generatedon:06/11/201911:30 Patient name: JACKELIN MOORE Patient #: [id number] SSN: [id number] : 1945 Date of study: 06/11/2019 Page: Of Hemodynamic Procedure Report Patient Data Patient Demographics Procedure consent was obtained First Name: JACKELIN Gender: Male Last Name: TERESA : 1945 Middle Initial: R Age: 74 year(s) Patient #: [id number] Race: SSN: [id number] Additional ID: [id number] Contact details Address: [place] [address] State: [place] City: [place] Zip code: [address] Past Medical History Allergies: No known allergies Admission Admission Data Admission Date: 06/11/2019 Admission Time: 8:17 Arrival Date: 06/11/2019 Arrival Time: 10:30 Admit Source: Other Insurance Payor: Private Room #: [id number] health insurance [facility] #: [id number] Height (in.): 47.64 BSA: 2.1 (m2) Height (cm.): 121 BMI: 121.58 (kg/m2) Weight (lbs.): 392.42 Weight (kg.): 178 Lab Results Lab Result Date: 06/11/2019 Lab Result Time: 0:00 Biochemistry Name Units Result Min Max BUN mg/dl 13 --(--*-)-- 7 18 Creatinine mg/dl 1.2 --(---*)-- 0.6 1.3 eGFR ml/min 63 *-(----)-- 90 120 NONAFRICAN CBC Name Units Result Min Max Hemoglobin g/dl 12.9 -*(----)-- 13.5 17.5 Procedure Procedure Types Cath Procedure Diagnostic Procedure LHC LHC w/Coronaries FFR/IVUS FFR Initial FFR Additional Sedation Charges Moderate Sedation up to 30 minutes PCI Procedure Coronary Stent Coronary Stent Initial x2 Procedure Description Procedure Date Procedure Date: 06/11/2019 Procedure Start Time: 10:58 Procedure End Time: 11:27 Procedure Staff Name Function Carl Robledo MD Performing Physician Kathi Nixon RT Monitor Patricia Colon RT Scrub Elizabeth Robles RN Nurse Yves Parra RN Nurse Procedure Data Cath Procedure Fluoroscopy Diagnostic fluoroscopy Total fluoroscopy Time: 6.7 time: 6.7 min min Diagnostic fluoroscopy Total fluoroscopy dose: dose: 2240 mGy 2240 mGy Contrast Material Contrast Material Type Amount (ml) Isovue 300 211 Entry Location Entry Primary Successful Side Size Upsize Upsize Entry Closure Succes sful Closure Location (Fr) 1 (Fr) 2 (Fr) Remarks Device Remarks Femoral Right 5 Fr 6 Fr Exoseal artery Short Estimated blood loss: 5 ml Diagnostic catheters Device Type Used For End Catheter Placement MULTIPACK Pigtail 5 Fr LV Angiography catheter MULTIPACK JL 4.0 5Fr Left Coronary catheter Angiography MULTIPACK 3DRC 5Fr Right Coronary catheter Angiography Procedure Complications No complications Procedure Medications Medication Administration Route Dosage 0.9% NaCl I.V. 100 ml/hr Oxygen etCO2 Nasal cannula 2 l/min Lidocaine 2% added to field 20 Heparin Flush Bag added to field 2 bags (1000units/500ml NS) Versed I.V. 2 mg Fentanyl I.V. 50 mcg Versed I.V. 2 mg Fentanyl I.V. 100 mcg Versed I.V. 2 mg Fentanyl I.V. 50 mcg Heparin Bolus I.V. 4000 units Integrilin (Bolus I.V. 11.3 ml 2mg/ml) Integrilin (Bolus wasted 8.7 ml 2mg/ml) Fentanyl I.V. 100 mcg Nitroglycerin IC/IA I.C. 200 mcg Fentanyl I.V. 100 mcg Hemodynamics Rest BSA: 2.1 (m2) HGB: 12.9 (g/dl) O2 Consumption: Estimated: 241.17 (ml/min) O2 Con sumption indexed: Estimated:114.84 (ml/min/m) Heart Rate: 70 (bpm) Pressure Samples Time Site Value (mmHg) Purpose Heart Use Rate(bpm) 10:59 LV 190/16,28 Snapshot 32 Snapshots Pre Cath Intra NCS Post Cath Vital Signs Time Heart Resp SPO2 etCO2 NIBP (mmHg) Rhythm Pain Sedation Rate (ipm) (%) (mmHg) Status Level (bpm) 10:38:39 71 26 96 30.7 215/98(173) NSR 0 (11) 10(A) , No pain 10:43:26 71 26 97 28.2 207/85(153) NSR 0 (11) 10(A) , No pain 10:47:58 69 13 98 30.7 196/91(145) NSR 0 (11) 10(A) , No pain 10:52:31 67 28 96 16.4 193/93(153) NSR 0 (11) 10(A) , No pain 10:57:07 66 23 95 26.9 179/82(135) NSR 0 (11) 10(A) , No pain 11:01:42 66 23 95 34.4 193/92(138) NSR 0 (11) 10(A) , No pain 11:06:23 75 21 95 28.4 194/90(148) NSR 0 (11) 10(A) , No pain 11:10:57 80 25 96 32.1 194/111(165) NSR 7 (11) 10(A) , Very intense 11:15:37 84 26 95 28.4 169/145(157) NSR 7 (11) 10(A) , Very intense 11:20:08 83 26 95 0 189/105(134) NSR 7 (11) 10(A) , Very intense 11:24:40 78 22 94 0 181/92(124) NSR 0 (11) 10(A) , No pain Medications Time Medication Route Dose Verified Delivered Reason Notes Effectiveness by by 10:36:16 0.9% NaCl I.V. 100 Carl Elizabeth used for ml/hr Venkat Robles tank setter helper 10:36:22 Oxygen etCO2 2 Carl Elizabeth used for Nasal l/min Venkat Robles procedure cannula RN 10:36:27 Lidocaine 2% added 20ml Carl Carl for local to vial Venkat Robledo MD anesthetic field 10:36:32 Heparin Flush added 2 Carl Carl used for Bag to bags Venkat Robledo MD procedure (1000units/500ml field NS) 10:47:52 Versed I.V. 2 mg Carl Elizabeth for sedation Venkat Robles RN 10:47:57 Fentanyl I.V. 50 Carl Elizabeth for sedation mcg Venkat Robles RN 11:00:04 Versed I.V. 2 mg Carl Yves for sedation Venkat Parra RN 11:00:15 Fentanyl I.V. 100 Carl Yves for sedation mcg Venkat Parra RN 11:02:37 Versed I.V. 2 mg Carl Yves for sedation Venkat Parra RN 11:02:47 Fentanyl I.V. 50 Carl Yves for sedation mcg Venkat Parra RN 11:12:07 Heparin Bolus I.V. 4000 Carl Yves for units Venkat Parra anticoagulation RN 11:12:33 Integrilin I.V. 11.3 Carl Yves for (Bolus 2mg/ml) ml Venkat Parra antiplatelet RN therapy 11:12:49 Integrilin wasted 8.7ml Acrl Yves to sharp's (Bolus 2mg/ml) Venkat Parra RN 11:12:59 Fentanyl I.V. 100 Carl Yves for chest pain mcg Venkat Parra RN 11:18:31 Nitroglycerin I.C. 200 Carl Carl for IC/IA mcg Venkat Robledo MD vasodilation 11:23:05 Fentanyl I.V. 100 Carl Yves for chest pain mcg Venkat Parra RN Procedure Log Time Note 10:02:01 Informed consent obtained and on chart 10:05:52 Admit Source: Other 10:05:59 Patient Height : 47.64 inches 10:06:04 Patient Weight : 392.42 lbs 10:06:41 Insurance Payor : Private health insurance 10:06:53 Arrival Date: 06/11/2019 10:30:00 AM 10:07:39 Lab Result : eGFR NONAFRICAN 63 ml/min 10:07:39 Lab Result : Hemoglobin 12.9 g/dl 10:07:39 Lab Result : BUN 13 mg/dl 10:07:39 Lab Result : Creatinine 1.2 mg/dl 10:07:58 2) 60-89 Mildly reduced kidney function, and other findings (as for stage 1) point to kidney disease. 10:09:01 Maximum allowable contrast dose (3.7 X eGFR X 0.75)175 ml. 10:09:13 ACC Patient presents with Stable Angina CCS Anginal Class 3--Marked limitation of physical activity, angina occurs with ordinary activity.. 10:11:20 ACCPatient has been prescribed/administered the following anti-anginal medication within the last 2 weeks: ARTIE-Inhibitor 10:11:41 Procedure Status Elective Heart Cath (OP). 10:11:56 Diagnostic Cath Status : Elective 10:13:00 Elizabeth Robles RN sent for patient. Start room use. 10:13:01 Time tracking: Regular hours (M-F 7:00 - 5:00) 10:13:06 Plan of Care:Hemodynamics will remain stable., Cardiac rhythm will remain stable., Comfort level will be maintained., Respiratory function will remain adequate., Patient/ family verbilizes understanding of procedure., Procedure tolerated without complication., Recovers from procedure without complications.. 10:36:03 Vital chart was started 10:36:16 0.9% NaCl 100 ml/hr I.V. was administered by Elizabeth Robles RN; used for procedure; Verbal order read back and verified. 10:36:22 Oxygen 2 l/min etCO2 Nasal cannula was administered by Elizabeth Robles RN; used for procedure; Verbal order read back and verified. 10:36:27 Lidocaine 2% 20ml vial added to field was administered by Carl Robledo MD; for local anesthetic; Verbal order read back and verified. 10:36:32 Heparin Flush Bag (1000units/500ml NS) 2 bags added to field was administered by Carl Robledo MD; used for procedure; Verbal order read back and verified. 10:36:46 Patient received from Pre/Post Procedure Room to [facility] 2 Alert and oriented. Tansferred to table in Supine position. 10:36:48 Warm blankets applied, and daryn hugger turned on for patient comfort. 10:36:48 Correct patient and procedure confirmed by team. 10:36:48 ECG and BP/O2 sat monitors applied to patient. 10:36:51 Baseline sample Acquired. 10:36:55 Rhythm: sinus rhythm 10:36:57 Full Disclosure recording started 10:37:01 H&P Date Dictated: 06/11/2019 Within 30 days and on chart., H&P Addendum completed by physician on day of procedure. (MUST COMPLETE FOR ALL OUTPATIENTS). 10:37:03 Pre-procedure instructions explained to patient. 10:37:03 Pre-op teaching completed and patient verbalized understanding. 10:37:05 Family in patients room. 10:37:08 Patient NPO since Midnight. 10:37:10 Is the patient allergic to Iodine/contrast media? No. 10:37:11 Was the patient premedicated? Yes 10:37:51 Patient diabetic? No. 10:37:55 Previous problem with sedation/anesthesia? No ? 10:38:05 Is patient on blood thinner?Yes 10:38:08 ACC The patient was administered the following blood thiners within the last 24 hours: ACCAspirin 10:38:10 Snore? Yes 10:38:11 Sleep apnea? Yes 10:38:13 Deviated septum? No 10:38:14 Opens mouth fully? Yes 10:38:15 Sticks out tongue? Yes 10:38:18 Airway obstruction? Yes copd 10:38:25 Dentures? Yes uppers in tight 10:40:02 Pre procedure: right dorsailis pedis pulse Doppler 10:40:05 Pre procedure: left dorsailis pedis pulse Doppler 10:40:08 Patient pain scale 0/10 ?. 10:40:14 IV patent on arrival in right antecubital with 0.9% NaCl at [facility]. 10:40:17 Lab results completed and on chart. 10:41:03 Risk of Mortality: 0.2 10:41:08 Risk of blood transfusion: 0.1 10:41:13 Risk of MIKEL: 1.6 10:41:17 Right groin area was prepped with chlora-prep and draped in sterile fashion 10:41:19 Alarms reviewed by R. N. 10:41:19 Sharps counted by scrub and verified by R.N. 10:46:58 Physician arrived 10:46:59 --------ALL STOP TIME OUT------ 10:46:59 Final Timeout: patient, procedure, and site verified with staff and physician. All members of the team are in agreement. 10:47:02 Right groin site verified by team. 10:47:07 Fire Safety Assessment: A--An alcohol-based skin anteseptic being used preoperatively., C--Open oxygen or nitrous oxide is being used., D--An ESU, laser, or fiber-optic light is being used. 10:47:10 Physical assessment completed. ASA score P 2 - A patient with mild systemic disease as per Carl Robledo MD. 10:47:48 Sedation plan: IV Moderate Sedation Medication:Versed, Fentanyl 10:47:52 Versed 2 mg I.V. was administered by Elizabeth Robles RN; for sedation; Verbal order read back and verified. 10:47:57 Fentanyl 50 mcg I.V. was administered by Elizabeth Robles RN; for sedation; Verbal order read back and verified. 10:49:39 Use device set Femoral Dx 10:49:40 ACIST Syringe (52702) opened to sterile field. 10:49:40 Bag Decanter (2002S) opened to sterile field. 10:49:41 Medline Cath Pack ([id number]) opened to sterile field. 10:49:42 ACIST Hand Control (55392) opened to sterile field. 10:49:42 ACIST Manifold (66781) opened to sterile field. 10:49:43 DIAGNOSTIC Multipack 5Fr catheter set ([id number]) opened to sterile field. 10:49:43 Tegaderm 4 x 4 (1626W) opened to sterile field. 10:49:46 SHEATH 5FR Gore (BFO081) opened to sterile field. 10:49:46 EMERALD Guide Wire (947-741) opened to sterile field. 10:58:20 Procedure started. 10:58:23 Local anesthetic to right femoral artery with Lidocaine 2% by Carl Robledo MD.INITIAL ACCESS ONLY 10:58:31 A 5 Fr sheath was inserted into the Right Femoral artery 10:59:15 Zero performed for pressure channel P1 10:59:36 A MULTIPACK Pigtail 5 Fr catheter was advanced over the wire and used for LV Angiography. 10:59:44 LV hemodynamics recorded. 10:59:46 LV gram done using DEWEY 10:59:47 LV gram done using DEWEY 10:59:50 Injector settings: Ml/sec: 5, Volume: 15, 10:59:56 EF : 60 % 11:00:04 Versed 2 mg I.V. was administered by Yves Parra RN; for sedation; Verbal order read back and verified. 11:00:15 Fentanyl 100 mcg I.V. was administered by Yves Parra RN; for sedation; Verbal order read back and verified. 11:00:50 Catheter removed. 11:00:54 A MULTIPACK JL 4.0 5Fr catheter was advanced over the wire and used for Left Coronary Angiography. 11:00:57 LCA angiography performed. 11:00:59 Injector settings: Ml/sec: 3, Volume: 6, 11:01:49 Catheter removed. 11:01:54 A MULTIPACK 3DRC 5Fr catheter was advanced over the wire and used for Right Coronary Angiography. 11:02:37 Versed 2 mg I.V. was administered by Yves Parra RN; for sedation; Verbal order read back and verified. 11:02:47 Fentanyl 50 mcg I.V. was administered by Yves Parra RN; for sedation; Verbal order read back and verified. 11:03:27 RCA angiography performed. 11:03:30 Injector settings: Ml/sec: 3, Volume: 6, 11:03:32 ACCDominant side:Right 11:03:43 SHEATH 6FR Gore (MZH680) opened to sterile field. 11:03:53 Catheter removed. 11:04:03 Sheath upsized to a 6 Fr Short. 11:05:36 GUIDE 6FR XBLAD 4.0 catheter ([id number]) opened to sterile field. 11:05:42 [place] Verrata Plus pressure wire (36626P) opened to sterile field. 11:05:55 6 Fr xblad 4 guide catheter was inserted over the wire 11:06:16 INFLATOR Merit BasixCompak (IH7126) opened to sterile field. 11:06:31 FFR/IFR wire advanced. 11:07:02 Baseline FFR 1. 11:07:39 Wire advanced across lesion. 11:08:47 mLAD lesion measured at 0.43 with IFR 11:12:02 IFR wire damaged; new IFR wire opened 11:12:07 Heparin Bolus 4000 units I.V. was administered by Yves Parra RN; for anticoagulation; Verbal order read back and verified. 11:12:09 [place] Verrata Plus pressure wire (13518S) opened to sterile field. 11:12:27 FFR/IFR wire advanced. 11:12:33 Integrilin (Bolus 2mg/ml) 11.3 ml I.V. was administered by Yves Parra RN; for antiplatelet therapy; Verbal order read back and verified. 11:12:49 Integrilin (Bolus 2mg/ml) 8.7ml wasted was administered by Yves Parra RN; to sharp's; Verbal order read back and verified. 11:12:53 Baseline FFR 1. 11:12:59 Fentanyl 100 mcg I.V. was administered by Yves Parra RN; for chest pain; Verbal order read back and verified. 11:14:36 mCirc lesion measured at 0.78 with IFR 11:15:00 ACC Pre-intervention TRISH Flow is 3. 11:15:33 Place stent Inflation Number: 1 A TYLER RX 3.0 x 15 stent ([id number]) was prepped and advanced across the Prox CX 75. The stent was deployed at 13 CLARK for 0:10 (min:sec) . 11:15:34 Post PCI Site: [place] pCirc has 0% stenosis. 11:16:21 Stent catheter was removed intact over wire. 11:16:24 Wire removed. 11:17:19 choice pt wire advanced. 11:17:26 Wire advanced across lesion. 11:18:31 Nitroglycerin IC/IA 200 mcg I.C. was administered by Carl Robledo MD; for vasodilation; Verbal order read back and verified. 11:18:36 CHOICE PT Extra Support 182cm wire ([id number]) opened to sterile field. 11:18:37 ACC Pre-intervention TRISH Flow is 3. 11:18:37 Pre PCI Site: [place] pLAD has 80% stenosis. 11:19:45 Place stent Inflation Number: 1 A TYLER RX 3.5 x 12 stent ([id number]) was prepped and advanced across the Prox LAD 80. The stent was deployed at 15 CLARK for 0:10 (min:sec) . 11:20:05 Post PCI Site: [place] pLAD has 0% stenosis. 11:20:05 ACC Post-intervention RTISH Flow is 3. 11:20:34 Stent catheter was removed intact over wire. 11:20:35 Wire removed. 11:20:36 Guide catheter removed. 11:21:05 EXOSEAL 6Fr (EX600) opened to sterile field. 11:21:17 Sheath removed intact; hemostasis achieved with Exoseal to the Right Femoral artery. 11:21:18 ACT drawn and resulted at 229 seconds. (normal therapeutic range 180-240 seconds). 11::45 Procedure ended.(Physican Out) 11:23:05 Fentanyl 100 mcg I.V. was administered by Yves Parra RN; for chest pain; Verbal order read back and verified. :: Fluoroscopy time 06.70 minutes. 11::27 Flurop Dose total: 2240 11:: Fluoroscopy dose: 2240 mGy 11:25:33 Dose Area Product 12998 mGy/cm. 11:25:37 Contrast amount:Isovue 300 211ml. 11:25:40 Maximum allowable dose exceeded? Yes. 11::41 Sharps counted by scrub and verified by R.N. 11:25:45 Insertion/operative site no bleeding no hematoma. 11:25:48 Post-op/insertion site Right Femoral artery dressed using a 4 x 4 and Tegaderm. 11:25:49 Post Procedure Pulses reassessed and unchanged 11:25:52 Post procedure rhythm: unchanged. 11:25:54 Estimated blood loss: 5 ml 11:25:56 Post procedure instruction explained to patient.Patient verbalizes understanding. 11:25:57 Patient needs reinforcement of post procedure teaching. 11:26:24 Procedure type changed to Cath procedure, Diagnostic procedure, C, [facility] w/Coronaries, FFR/IVUS, FFR Initial, FFR Additional, Sedation Charges, Moderate Sedation up to 30 minutes, PCI procedure, Coronary Stent, Coronary Stent Initial x2 11::56 Procedure and supply charges have been captured, reviewed, submitted and are correct. 11:27:01 Procedure Complication : No complications 11:27:05 Vital chart was stopped 11:27:10 [facility] Findings: MVD- PCI performed (see procedure note) 11:27:12 Operative report dictated upon procedure completion. 11:27:13 See physician's report for complete and final results. 11:27:17 Report given to Pre/Post Procedure Room. 11:27:20 Patient transfered to Pre/Post Procedure Room with Stretcher. 11:27:22 Procedure ended. 11:27:22 Full Disclosure recording stopped 11:27:37 ACC-PCI Only Patient was given prescriptions, or instructed by Carl Robledo MD to start/continue the following medications upon discharge: Aspirin, Plavix 11:27:39 End room use (Document Last) 11:28:51 End room use (Document Last) Intervention Summary Intervention Notes Time ActionType Lesion and Equipment Used Action# Pressure Duration Attributes 11:15:33 Place stent Prox CX TYLER RX 3.0 x 1 13 00:10 15 stent ([id number]) 11:19:45 Place stent Prox LAD TYLER RX 3.5 x 1 15 00:10 12 stent ([id number]) Device Usage Item Name Manufacture Quantity Catalog Number Hospital Part Current Minimal Lot# / Charge Number Stock Stock Serial# Code ACIST Syringe Acist 1 93902 141420 110656 354546 20 (70024) Medical Systems Inc Bag Decanter Microtek 1 748258 05430 722925 5 (2001S) Medical Inc. Medline Cath Medline 1 [id number] 283919 40730 328180 5 Pack ([id number]) ACIST Hand Acist 1 84224 722797 299924 663763 5 Control Medical (93617) Systems Inc ACIST Manifold Acist 1 85340 030020 898885 343288 5 (19050) Medical Systems Inc DIAGNOSTIC Cardinal 1 KZ4659 800819 34441 219241 30 Multipack 5Fr Health catheter set (OU6233) Tegaderm 4 x 4 3M 1 1626W 496843 423500 408947 5 (1626W) SHEATH 5FR Terumo 1 XOH932 585239 737108 448312 5 Gore (ZSI715) EMERALD Guide Cardinal 1 502-455 369062 378847 031259 5 Wire (502-455) Health MULTIPACK Cardinal 1 354208 5 Pigtail 5 Fr Health catheter MULTIPACK JL Cardinal 1 011897 5 4.0 5Fr Health catheter MULTIPACK 3DRC Cardinal 1 848294 5 5Fr catheter Health SHEATH 6FR [place]o 1 IIR802 536887 046929 967456 40 Gore (CHL412) GUIDE 6FR Cardinal 1 [id number] 449154 783728 448132 3 XBLAD 4.0 Health catheter ([id number]) [place] 2 48432R 817487 146743196 195864 5 Verrata Plus pressure wire (45980R) INFLATOR Merit Merit 1 IO1386 908004 088282 251077 15 BasixCompak Medical (YD2876) TYLER RX 3.0 x Medtronic 1 [id number] 673668 1242293 476758 5 [id number] 15 stent ([id number]) CHOICE PT [place] 1 [id number] 913998 457158 825772 5 Extra Support Scientific 182cm wire ([id number]) TYLER RX 3.5 x Medtronic 1 [id number] 739012 6825095 581747 5 [id number] 12 stent ([id number]) EXOSEAL 6Fr Cardinal 1 EX600 335024 336892 521844 10 (EX600) Health Signature Audit [place] Stage Time Signature Unsigned Intra-Procedure 06/11/2019 Patricia Colon 11:28:51 AM RT(R) Intra-Procedure 06/11/2019 Yves 11:29:52 AM Fidel TALLEY Intra-Procedure 06/11/2019 Carl Robledo 11:30:16 AM Signatures Performing Physician : Signature : Carl Robledo MD Date : Time : Monitor : Kathi Nixon Signature : RT Date : Time : Nurse : Elizabeth Robles RN Signature : Date : Time : Nurse : Yves Parra Signature : RN Date : Time : [facility] [address] [place] [address]
[~2019-06-11 08:17] MED LIST changes: -ALBUTEROL2.5 MG/3 M INH; -FUROSEMIDE40 MG PO; -ZOLOFT100 MG PO
[2019-06-11 09:00] VITALS: BP 182/69; Ht 177.8 cm; Wt 120.5 kg
[2019-06-11] MEDS ORDERED: K-TAB10 MEQ PO (09:16)
[2019-06-11] MEDS ORDERED: FUROSEMIDE40 MG PO (09:16)
[2019-06-11] MEDS ORDERED: ALBUTEROL2.5 MG/3 M INH (09:19)
[2019-06-11] MEDS ORDERED: ZOLOFT100 MG PO (09:20)
[2019-06-11 09:22] LABS: BASOPHILS 0.5 % (0-2); EOSINOPHILS 6.8 % (0-7); HEMATOCRIT 40.3 % (42.0-54.0); HEMOGLOBIN 12.9 g/dL (13.5-17.5); IMMATURE GRANULOCYTES 0.2 % (0-5); LYMPHOCYTES 30.7 % (15-50); MCH 33.2 pg (26.0-34.0); MCV 103.9 fL (80.0-100.0); MONOCYTES 6.8 % (2-11); PLATELET COUNT 156 10x3/uL (130-400); RBC 3.88 10x6/uL (4.20-6.10); WBC 5.9 10x3/uL (4.8-10.8)
[2019-06-11 09:41] LABS: ANION GAP 10.6 mmol/L (8-16); CARBON DIOXIDE 29.8 mmol/L (21.0-32.0); CHOL - HDL RATIO 2.6 ratio (2.3-4.9); CREATININE - SERUM 1.2 mg/dL (0.6-1.3); LDL-HDL RATIO 1.3 ratio (1.5-3.5); POTASSIUM - SERUM 3.4 mmol/L (3.5-5.1)
[2019-06-11] MEDS ORDERED: PLAVIX75 MG PO (12:04)
--- NOTE | 2019-06-11 12:29 | NUR ---
PT HAS RECEIVED ALBUTEROL UPDRAFT PER ORDERS, RR IS 22, SAT IS 94% ON O2 AT 2LPM VIA NC. PT IS SLEEPING, AWAKENS EASILY TO VERBAL. DRESSING IS CDI TO RIGHT GROIN, AREA IS SOFT AND NONTENDER. PEDAL PULSES PALPABLE. NSR, RATE 70, DENIES ANY C/O CHEST PAIN. BP IS 130/61. HOB IS FLAT, CALL LIGHT IN REACH, AT BEDSIDE. DR HEATH HAS ROUNDED AND SPOKEN WITH PT AND . PT JONATAN SIPS OF WATER, DENIES NEEDS AT THIS TIME.
--- NOTE | 2019-06-11 13:00 | NUR ---
1245 PT SLEEPING, VSS, DRESSING CDI, PEDAL PULSES PALPABLE. HOB IS FLAT.
--- NOTE | 2019-06-11 13:05 | NUR ---
PT ALERT, DENIES ANY C/O CHEST PAIN. DRESSING IS CDI TO RIGHT GROIN, AREA IS SOFT AND NONTENDER. PEDAL PULSES PALPABLE. PT C/O BACK PAIN, STATES HE HAS CHRONIC BACK PAIN AND THIS POSITION IS UNCOMFORTABLE FOR HIM. ORDER RECIEVED FOR NORCO 10MG PO Q 4 HOURS PRN PAIN.
--- NOTE | 2019-06-11 13:16 | NUR ---
DRESSING IS CDI, PEDAL PULSES PALPABLE, NORCO 10MG GIVEN PO PER ORDERS. PT DENIES ANY OTHER C/O. VSS, AT BEDSIDE.
--- NOTE | 2019-06-11 13:55 | NUR ---
PT ALERT, NSR RATE IS 61. BP IS 133/64, SAT IS 94% ON O2 AT 2LPM VIA NC. DRESSING IS CDI, PEDAL PULSES PALPABLE. PT DENIES NEEDS AT THIS TIME.
--- NOTE | 2019-06-11 14:29 | NUR ---
PT SLEEPING, RESP WITH EASE. DRESSING IS CDI RIGHT GROIN, AREA IS SOFT WITH NO HEMATOMA NOTED. PEDAL PULSES PALPABLE. HOB IS FLAT, AT BEDSIDE. VSS.
--- NOTE | 2019-06-11 14:43 | NUR ---
DRESSING REMAINS CDI, PULSES PALPABLE. HOB ELEVATED 30 DEGREES, SANDWICH AND PO FLUIDS SERVED. PT DENIES ANY C/O AT THIS TIME. RESPWITH EASE ON ROOM AIR, SAT IS 95%. BP IS 143/62, NSR, RATE 60.
--- NOTE | 2019-06-11 14:57 | NUR ---
HOB FULLY ELEVATED, DRESSING REMAINS CDI TO RIGHT GROIN, PEDAL PULSES PALPABLE. PT IS ALERT AND DENIES ANY C/O CHEST PAIN. STATES BACK PAIN DECREASED TO A 4/10 AFTER NORCO. VSS, AT BEDSIDE.
--- NOTE | 2019-06-11 15:25 | NUR ---
PT HAS JONATAN PO FLUIDS AND GRAPES WITH NO C/O NAUSEA. DRESSING REMAINS CDI, AREA IS SOFT AND NONTENDER. IV DC'D WITH CATH INTACT AND PT IS DRESSING FOR DC TO HOME WITH ASSIST.
--- NOTE | 2019-06-11 15:54 | NUR ---
1545 DC INSTRUCTIONS HAVE BEEN REVIEWED WITH PT AND WHO VERBALIZE UNDERSTANDING. PLAVIX PRESCRIPTION TO PT, PT AND VERBALIZE UNDERSTANDING OF PT STARTING THIS MEDICATION TOMORROW. ASSISTED PT TO THE BATHROOM, PT VOIDED QS. PT IS ALERT AND DENIES ANY C/O. PT ESCORTED TO PRIVATE AUTO VIA WC BY NURSE [facility]IH DRIVING HIM HOME. PT HAS DC INSTRUCTIONS AND ALL PERSONAL BELONGINGS AT TIME OF DISCHARGE.
--- NOTE | 2019-06-14 13:28 | OP ---
PATIENT NAME: JACKELIN MOORE MEDICAL RECORD: [id number] :43 LOCATION:D.CAT ADMISSION DATE: SURGEON: MODESTA HEATH MD DATE OF OPERATION: 06/11/2019 PROCEDURES: 1. PTCA and stent of LAD. 2. PTCA and stent of left circumflex. 3. IFR of LAD. 4. IFR of left circumflex. 5. Left heart catheterization. 6. Selective coronary angiography. 7. Left ventriculogram. INDICATIONS: Angina, coronary artery disease, abnormal nuclear stress test. DESCRIPTION OF PROCEDURE: After informed consent was obtained and after a detailed explanation of risks, benefits as well as alternative therapies, the patient elected to proceed with angiogram and angioplasty. The right femoral area was prepped and draped in normal sterile fashion. Right femoral artery was cannulated via modified Seldinger technique with placement of 6-Chinese sheath. All catheters exchanged through this sheath. FINDINGS: Left ventriculogram was performed in standard 30-degree DEWEY view, reveals good cardiac wall motion and ejection fraction of 60%. SELECTIVE CORONARY ANGIOGRAPHY: 1. Left main is with no significant angiographic disease. 2. Left anterior descending appears to have greater than 80% stenosis at the ostium. IFR is grossly abnormal, less than 0.5. 3. Left circumflex has a 75% stenosis in the proximal vessel and IFR is abnormal at 0.78. 4. Right coronary has some moderate irregularities, but no flow-limiting stenosis. Previously placed stents are widely patent. PTCA AND STENT OF THE LAD: The stent used was a 3.5 x 12-mm Raúl. Result was 0% residual stenosis. PTCA AND STENT OF THE LEFT CIRCUMFLEX: The stent used was a 3.0 x 15-mm [place]. Result was 0% residual stenosis. OVERALL IMPRESSION: Successful PTCA and stent of the LAD and circumflex, both going from 75% to 90% initial stenosis to 0% residual. TRANSINT:[id number] Voice Confirmation ID: [id number] DOCUMENT ID: [id number] MODESTA HEATH MD at 1328 CC: [id number] DICTATION DATE: 06/11/19 1127 [place] REFEREE: 06/11/19 1145 DEP CLI 06/11/19 [place] [address]
== END 2019-06-11 15:45 | disposition home or self-care (01) ==
LOC: D.CATH 08:17 → D.CLR 08:30 → D.CATH 10:30
PROVIDERS: ATTEND Internal Medicine Interventional Cardiology
DX: I25.119 Atherosclerotic heart disease of native coronary artery with unspecified angina pectoris (principal); R94.30 Abnormal result of cardiovascular function study, unspecified
CPT/HCPCS: 93458; 93571; 93572; C9600 ×2